=== PATIENT | male | born 1960 | race American Indian/Alaskan Native ===

== ENCOUNTER 2016-11-12 13:07 | Emergency (ER) | payer MEDICARE, MEDICAID ==
[2016-11-12 13:12] VITALS: BP 113/88
--- NOTE | 2016-11-12 13:42 | EDM.PDOC ---
ED HPI EYE COMPLAINT - General Chief Complaint: Eye Problems Stated Complaint: LEFT EYE Time Seen by Provider: 11/12/16 13:38 Source: Reports: Patient History Limitations: Reports: No limitations - History of Present Illness INITIAL COMMENTS - FREE TEXT/NARRATIVE: Per patient he woke this am with blurred vision in the left eye. no other complaints. no weakness or dizziness. states that he was seen a few weeks ago and diagnosed with an eyelid infection and told to put warm compression on it. Symptom Onset Date: 11/12/16 Timing/Duration: Reports: Constant Location: left eye Severity: mild Associated Symptoms (Eye): Reports: pain, itching, decreased/blurred - Related Data Allergies/ADRs: Allergies pentazocine lactate [From Talwin] Allergy (Verified 07/05/16 12:04) Cannot Remember phenobarbital Allergy (Verified 07/05/16 12:04) Cannot Remember phenytoin sodium [From Dilantin] Allergy (Verified 07/05/16 12:04) Cannot Remember phenytoin sodium extended [From Dilantin] Allergy (Verified 07/05/16 12:04) Cannot Remember Home Meds: Ambulatory Orders Medication Instructions Recorded Confirmed Divalproex Sodium [Depakote ER] 1,000 mg PO BID 01/22/14 03/24/16 Tafluprost/Pf [Zioptan 0.0015% Eye 1 each OP DAILY 03/17/15 03/24/16 Drops] Levothyroxine [Synthroid] 50 mcg PO DAILY 02/15/16 03/24/16 Cholecalciferol (Vitamin D3) 1,000 unit PO DAILY 02/17/16 03/24/16 [Vitamin D] LORazepam [Ativan] 0.5 mg PO DAILY PRN 02/17/16 03/24/16 Past Medical History HEENT History: Reports: Glaucoma Cardiovascular History: Reports: None Respiratory History: Reports: Bronchitis, recurrent Gastrointestinal History: Reports: GERD Genitourinary History: Reports: None Musculoskeletal History: Reports: Connective tissue disease Other Musculoskeletal History: marfans syndrome Neurological History: Reports: CVA, Seizure Psychiatric History: Reports: Addiction Endocrine/Metabolic History: Reports: Other (see below) Other Endocrine/Metabolic History: vitamin D Hematologic History: Reports: None Immunologic History: Reports: None Oncologic (Cancer) History: Reports: Lung Dermatologic History: Reports: None - Infectious Disease History Infectious Disease History: Reports: None - Past Surgical History Head Surgeries/Procedures: Reports: None GI Surgical History: Reports: Cholecystectomy Other Endocrine Surgeries/Procedures: medication hx shows levothyroxine. he states he does not take that med. Musculoskeletal Surgical History: Reports: Arthroscopic procedure Social & Family History - Family History Family Medical History: Noncontributory - Tobacco Use Smoking Status *Q: Former Smoker Month Tobacco Last Used: 07/1990 Second Hand Smoke Exposure: No - Caffeine Use Caffeine Use: Reports: Soda - Alcohol Use Days Per Week of Alcohol Use: 1 Number of Drinks Per Day: 2 Total Drinks Per Week: 2 - Recreational Drug Use Recreational Drug Use: No - Living Situation & Occupation Living situation: Reports: with family Occupation: disabled ED ROS GENERAL - Review of Systems Review Of Systems: See Below HEENT: Reports: Eye pain, Vision change ED EXAM GENERAL W FULL EYE - Physical Exam Exam: See Below Exam Limited By: No limitations General Appearance: alert, WD/WN, no apparent distress Eye Exam: bilateral eye: EOMI, normal inspection, PERRL Visual acuity (R) 20/: 40 Visual acuity (L) 20/: 40 With Correction: No Eyelids: right: normal appearance, left: erythema, stye Conjunctiva & Sclera: bilateral: normal appearance Cornea Exam: bilateral: normal appearance Extraocular Movements: bilateral: intact Pupils: normal accommodation Pupillary Size: bilateral: 4 mm Pupillary Reaction: bilateral: brisk Anterior Chamber: bilateral: normal appearance Ears: normal external exam, hearing grossly normal, other (cerumen bilaterally, minimally visualized TM with mild effusion) Respiratory/Chest: no respiratory distress, lungs clear, normal breath sounds, no accessory muscle use, chest non-tender Cardiovascular: normal peripheral pulses, regular rate, rhythm, no edema, no gallop, no JVD, no murmur, no rub Extremities: other (weak left upper extremity from previous injury) Neurological: alert, oriented, CN II-XII intact, normal cognition, normal gait, normal reflexes, no motor/sensory deficits Course - Vital Signs Last Recorded V/S: Last Vital Signs Temp 96.6 F 11/12/16 13:11 Pulse 67 11/12/16 13:11 Resp 18 11/12/16 13:11 BP 113/88 11/12/16 13:11 Pulse Ox 100 11/12/16 13:11 - Radiology Interpretation Free Text/Narrative:: No acute findings Departure - Departure Time of Disposition: 15:17 Disposition: Home, Self-Care 01 Condition: good Clinical Impression: Blurred vision, left eye Instructions: Blurred Vision Forms: ED Department Discharge Additional Instructions: Make sure to follow up with an eye doctor as soon as possible. They can look in the back of the eye to evaluate the nerves. Return for any worsening symptoms.
--- NOTE | 2016-11-12 14:23 | CT ---
CLINICAL HISTORY: 56-year-old 207 pound male complaining of blurred vision reported on previous CT s can of the head 26 February 2016 to have "no acute intracranial process (large amount of encephalomalaci a right frontal, parietal and temporal lobes). SCAN TECHNIQUE: Volume acquisition of data from an unenhanced CT scan of the head obtained with the patient lying supine on the Siemens multislice scanner [facility] . All data archived in the PACS system for storage and study (bone/brain windows). INTERPRETATION: No new intracranial abnormality when compared directly to images of February 2016. 1. Right craniotomy with underlying extensive encephalomalacia right cerebral hemisphere. 2. Symmetric clear pneumatization of the paranasal and mastoid sinuses. 3. No new ischemic or hemorrhagic involvement of the occipital lobes either cerebral hemisphere. 4. No new signs of supratentorial or posterior fossa mass lesion, ischemic infarct, or acute intrace rebral/intraventricular/subarachnoid bleed. Chronic asymmetry of the ventricular system. 5. Atrophy. No abnormal new collections of extracerebral/intracranial epidural or subdural fluid.
== END 2016-11-12 15:36 | disposition home or self-care (01) ==
LOC: DL.ED 13:07
DX: H53.8 Other visual disturbances (principal); K21.9 Gastro-esophageal reflux disease without esophagitis; Z88.8 Allergy status to other drugs, medicaments and biological substances; Z79.899 Other long term (current) drug therapy; Z90.49 Acquired absence of other specified parts of digestive tract; Z87.891 Personal history of nicotine dependence
CPT/HCPCS: 70450; 99282; 99284

== ENCOUNTER 2016-11-16 14:10 | Emergency (ER) | payer MEDICARE, MEDICAID ==
--- NOTE | 2016-11-16 14:20 | EDM.PDOC ---
ED HPI HEAD INJURY - General Chief Complaint: Head Injury Stated Complaint: FELL WEDNESDAY AM, NOSE BROKE ? Time Seen by Provider: 11/16/16 14:19 Source of Information: Reports: Patient, Family, Old records, RN, RN notes reviewed History Limitations: Reports: No limitations - History of Present Illness INITIAL COMMENTS - FREE TEXT/NARRATIVE: Complains of face injury sustained late Wednesday night/early Wednesday morning from a fall at home. Patient complains of possible broken nose or face bone. Denies LOC, nausea, vomiting or any other injury. Admits to left nose bleed which patient was able to stop on his own. Timing/Duration: Reports: Constant Location: Reports: face Quality: Reports: ache Severity: moderate Place of Occurrence: home Improves with: none Worsens with: none Associated Symptoms: Reports: no other symptoms - Related Data Allergies/ADRs: Allergies Allergy/AdvReac Type Severity Reaction Status Date / Time pentazocine lactate Allergy Cannot Verified 07/05/16 12:04 [From Talwin] Remember phenobarbital Allergy Cannot Verified 07/05/16 12:04 Remember phenytoin sodium Allergy Cannot Verified 07/05/16 12:04 [From Dilantin] Remember phenytoin sodium extended Allergy Cannot Verified 07/05/16 12:04 [From Dilantin] Remember Home Meds: Home Meds Divalproex Sodium [Depakote ER] 1,000 mg PO BID 01/22/14 [History] Tafluprost/Pf [Zioptan 0.0015% Eye Drops] 1 each OP DAILY 03/17/15 [History] Levothyroxine [Synthroid] 50 mcg PO DAILY 02/15/16 [History] Cholecalciferol (Vitamin D3) [Vitamin D] 1,000 unit PO DAILY 02/17/16 [History] LORazepam [Ativan] 0.5 mg PO DAILY PRN 02/17/16 [History] Past Medical History HEENT History: Reports: Glaucoma Cardiovascular History: Reports: None Respiratory History: Reports: Bronchitis, recurrent Gastrointestinal History: Reports: GERD Genitourinary History: Reports: None Musculoskeletal History: Reports: Connective tissue disease Other Musculoskeletal History: marfans syndrome Neurological History: Reports: CVA, Seizure Psychiatric History: Reports: Addiction Endocrine/Metabolic History: Reports: Other (see below) Other Endocrine/Metabolic History: vitamin D Hematologic History: Reports: None Immunologic History: Reports: None Oncologic (Cancer) History: Reports: Lung Dermatologic History: Reports: None - Infectious Disease History Infectious Disease History: Reports: None - Past Surgical History Head Surgeries/Procedures: Reports: None GI Surgical History: Reports: Cholecystectomy Other Endocrine Surgeries/Procedures: medication hx shows levothyroxine. he states he does not take that med. Musculoskeletal Surgical History: Reports: Arthroscopic procedure Social & Family History - Family History Family Medical History: Noncontributory - Tobacco Use Smoking Status *Q: Former Smoker Month Tobacco Last Used: 07/1990 Second Hand Smoke Exposure: No - Caffeine Use Caffeine Use: Reports: Soda - Alcohol Use Days Per Week of Alcohol Use: 1 Number of Drinks Per Day: 2 Total Drinks Per Week: 2 - Recreational Drug Use Recreational Drug Use: No - Living Situation & Occupation Living situation: Reports: with family Occupation: disabled ED ROS GENERAL - Review of Systems Review Of Systems: ROS reveals no pertinent complaints other than HPI. ED EXAM, HEAD INJURY - Physical Exam Exam: See Below Exam Limited By: No limitations General Appearance: alert, WD/WN, no apparent distress Head: other (Swelling with contusion, superficial abrasions and tenderness to left forehead and left eyebrow and nose. Bilateral periorbital contusions left greater than right. ) Neck: non-tender, full range of motion, normal alignment, normal inspection Respiratory: no respiratory distress, lungs clear, normal breath sounds, no accessory muscle use, chest non-tender Cardiovascular: normal peripheral pulses, regular rate, rhythm, no edema, no gallop, no JVD, no murmur, no rub Back Exam: full range of motion, normal inspection, NT Extremities: no evidence of injury, normal range of motion, non-tender, no pedal edema, pelvis stable Neurologic: gis administrator II-XII nml as tested, no motor/sensory deficits, alert, normal mood/affect, oriented x 3 Course - Vital Signs Last Recorded V/S: Last Vital Signs Temp 36.2 C 11/16/16 14:36 Pulse 76 11/16/16 14:36 Resp 16 11/16/16 14:36 BP 114/77 11/16/16 14:36 Pulse Ox 98 11/16/16 14:36 - Orders/Labs/Meds Orders: Active Orders 24 hr Category Date Time Status Vaccines to be Administered [RC] PER UNIT ROUTINE Care 11/16/16 16:01 Active Meds: Medications Discontinued Medications Generic Name Dose Route Start Last Admin Trade Name Jenni PRN Reason Stop Dose Admin Amoxicillin/Clavulanate Potassium 1 tab 11/16/16 16:02 11/16/16 16:25 Augmentin 875 Mg/125 Mg PO 11/16/16 16:03 1 tab ONETIME ONE Administration Bacitracin 1 dose 11/16/16 16:01 11/16/16 16:26 Bacitracin Oint 1 Gm TOP 11/16/16 16:02 1 dose ONETIME ONE Administration Diphtheria/Tetanus/Acell Pertussis 0.5 ml 11/16/16 16:01 11/16/16 16:28 Adacel IM 11/16/16 16:02 0.5 ml .ONCE ONE Administration - Radiology Interpretation Free Text/Narrative:: CT Max/facial: Comminuted anterior left frontal sinus fracture with depression with posterior wall fracture. See rad report. - Re-Assessments/Exams Free Text/Narrative Re-Assessment/Exam: Contacted Dr. Florez. He will make arrangements for outpatient follow up with the patient. Departure - Departure Time of Disposition: 16:56 Disposition: Home, Self-Care 01 Condition: fair Clinical Impression: Frontal sinus fracture Qualifiers: Encounter type: initial encounter Fracture type: closed Qualified Code(s): S02.19XA - Other fracture of base of skull, initial encounter for closed fracture Concussion Qualifiers: Encounter type: initial encounter Loss of consciousness presence/duration: without LOC Qualified Code(s): S06.0X0A - Concussion without loss of consciousness, initial encounter Instructions: Skull Fracture, Adult, Concussion, Adult, [id number] Referrals: Demarco Middleton MD [Primary Care Provider] - Forms: ED Department Discharge Additional Instructions: Rx: Augmentin 875mg Dr. Florez's office will contact you about a follow up appointment. Otherwise follow up in clinic with your doctor next week. - My Orders Last 24 Hours: My Active Orders 11/16/16 16:01 Vaccines to be Administered [RC] PER UNIT ROUTINE - Assessment/Plan Last 24 Hours: My Active Orders 11/16/16 16:01 Vaccines to be Administered [RC] PER UNIT ROUTINE
[2016-11-16 14:37] VITALS: BP 114/77
--- NOTE | 2016-11-16 16:00 | CT ---
CLINICAL HISTORY: 56-year-old male with facial trauma associated with fall (Wednesday). SCAN TECHNIQUE: Volume acquisition of data from an unenhanced CT scan of the facial bones obtained w ith the patient lying supine on the Siemens multislice CT scanner [place], [place]. All data archived in the PACS system for storage, reformatting axial/sagittal/coronal plane and study. INTERPRETATION: Abnormal. *Frontal soft tissue swelling with underlying comminuted fracture anterior wall frontal sinus, left of midline (depression of bony fragments with associated hematoma). Evidence of right craniotomy. No nasal bone, orbital or other facial bone fracture (small air-fluid level dependent portion of the left maxillary sinus).
[2016-11-16] MEDS ORDERED: Bacitracin Oint 1 GM U/D Packet TOP ONE (16:01)
[2016-11-16] MEDS ORDERED: Diphtheria,Pertussis(Acell),Tetanus Vaccine 0.5 ML SDV IM ONE (16:01)
[2016-11-16] MEDS ORDERED: Amoxicillin/Clavulanate K 875-125 MG Tab PO ONE (16:02)
== END 2016-11-16 17:05 | disposition home or self-care (01) ==
LOC: DL.ED 14:10
DX: S06.0X0A Concussion without loss of consciousness, initial encounter (principal); S02.19XA Other fracture of base of skull, initial encounter for closed fracture; S05.12XA Contusion of eyeball and orbital tissues, left eye, initial encounter; S05.11XA Contusion of eyeball and orbital tissues, right eye, initial encounter; K21.9 Gastro-esophageal reflux disease without esophagitis; Z23 Encounter for immunization; Z88.8 Allergy status to other drugs, medicaments and biological substances; Z86.73 Personal history of transient ischemic attack (TIA), and cerebral infarction without residual deficits; Z79.899 Other long term (current) drug therapy; Z90.49 Acquired absence of other specified parts of digestive tract; Z87.891 Personal history of nicotine dependence; W19.XXXA Unspecified fall, initial encounter; Y92.009 Unspecified place in unspecified non-institutional (private) residence as the place of occurrence of the external cause
CPT/HCPCS: 70486; 90715; 96372; 99284; A9270; 99283

== ENCOUNTER 2017-04-24 20:17 | Emergency (ER) | payer MEDICARE, MEDICAID ==
--- NOTE | 2017-04-24 20:24 | EDM.PDOC ---
ED HPI GENERAL MEDICAL PROBLEM - General Chief Complaint: Abdominal Pain Stated Complaint: ABD PAINS, LEFT SHOULDER Time Seen by Provider: 04/24/17 20:23 Source of Information: Reports: Patient - History of Present Illness INITIAL COMMENTS - FREE TEXT/NARRATIVE: 57 yo M with PMHx of chronic abdominal pain, constipation, OA, alcoholism & related intoxication, falls is here for RLQ abdominal pain since around 6 am this morning. The pain is sharp, 5/10, intermittent, non-radiating. He can't identify any alleviating or aggravating factors. He has been constipated since this morning (usually he is able to have a BM once or twice per week). He feels like his appetite has been low today. Since pain did not resolve today so he called 911 and EMS brought him in. Got 1L NS via EMS. Abdominal surgeries include cholecystectomy per chart review. Denies dysuria, hematuria, nausea, vomiting, fever, chills, recent abdominal pain, diarrhea, bloody stools, recent travel, h/o SD or stroke, fall/injury/ trauma, change in medications. Reports living alone and reports being ambulatory. Patient has had similar symptoms in the past. Per chart review, his CT Abd in 2016 did not show acute changes despite elevation in T-bili; AXR have showed excessive stool and etiologies such as constipation and viral have been discussed in the past. Bentyl and antiemetics have been tried in the past and have helped for the time being. Onset: Today Right Lower Abdomen Pain Score (Numeric/FACES): 7 - Related Data Allergies Allergy/AdvReac Type Severity Reaction Status Date / Time pentazocine lactate Allergy Cannot Verified 04/24/17 20:32 [From Talwin] Remember phenobarbital Allergy Cannot Verified 04/24/17 20:32 Remember phenytoin sodium Allergy Cannot Verified 04/24/17 20:32 [From Dilantin] Remember phenytoin sodium extended Allergy Cannot Verified 04/24/17 20:32 [From Dilantin] Remember Home Meds: Home Meds Divalproex Sodium [Depakote ER] 1,000 mg PO BID 01/22/14 [History] Tafluprost/Pf [Zioptan 0.0015% Eye Drops] 1 each OP DAILY 03/17/15 [History] Levothyroxine [Synthroid] 50 mcg PO DAILY 02/15/16 [History] Cholecalciferol (Vitamin D3) [Vitamin D] 1,000 unit PO DAILY 02/17/16 [History] LORazepam [Ativan] 0.5 mg PO DAILY PRN 02/17/16 [History] Past Medical History HEENT History: Reports: Glaucoma Cardiovascular History: Reports: None Respiratory History: Reports: Bronchitis, Recurrent Gastrointestinal History: Reports: GERD Genitourinary History: Reports: None Musculoskeletal History: Reports: Connective Tissue Disease Other Musculoskeletal History: marfans syndrome Neurological History: Reports: CVA, Seizure Psychiatric History: Reports: Addiction Endocrine/Metabolic History: Reports: Other (See Below) Other Endocrine/Metabolic History: vitamin D Hematologic History: Reports: None Immunologic History: Reports: None Oncologic (Cancer) History: Reports: Lung Dermatologic History: Reports: None - Infectious Disease History Infectious Disease History: Reports: None - Past Surgical History HEENT Surgical History: Reports: Other (See Below) Musculoskeletal Surgical History: Reports: Arthroscopic Procedure Social & Family History - Family History Family Medical History: Noncontributory - Tobacco Use Smoking Status *Q: Former Smoker Month Tobacco Last Used: 07/1990 Second Hand Smoke Exposure: No - Caffeine Use Caffeine Use: Reports: Soda - Alcohol Use Days Per Week of Alcohol Use: 1 Number of Drinks Per Day: 2 Total Drinks Per Week: 2 - Recreational Drug Use Recreational Drug Use: No - Living Situation & Occupation Living situation: Reports: with Family Occupation: Disabled ED ROS GENERAL - Review of Systems Review Of Systems: See Below Constitutional: Reports: No Symptoms HEENT: Reports: No Symptoms Respiratory: Reports: No Symptoms Cardiovascular: Reports: No Symptoms Endocrine: Reports: No Symptoms GI/Abdominal: Reports: Abdominal Pain, Anorexia, Constipation : Reports: No Symptoms Musculoskeletal: Reports: No Symptoms Skin: Reports: No Symptoms Neurological: Reports: No Symptoms Psychiatric: Reports: No Symptoms Hematologic/Lymphatic: Reports: No Symptoms Immunologic: Reports: No Symptoms ED EXAM, GI/ABD - Physical Exam Exam: See Below General Appearance: Alert, Mild Distress Eyes: Bilateral: EOMI Nose: Normal Inspection Throat/Mouth: No Airway Compromise, Other (poor oral hygiene.) Neck: Supple Respiratory/Chest: No Respiratory Distress, Lungs Clear, Normal Breath Sounds, No Accessory Muscle Use Cardiovascular: Normal Peripheral Pulses, Regular Rate, Rhythm, No Edema, No Murmur GI/Abdominal Exam: Normal Bowel Sounds, Soft, No Distention, Other (No rigidity or rebound or guarding. He has RLQ tenderness, positive psoas and obturator signs.) Rectal (Males) Exam: Deferred Extremities: Non-Tender, No Pedal Edema Neurological: Oriented Skin Exam: Warm, Dry, Intact Course - Vital Signs Last Recorded V/S: Last Vital Signs Temp 97.9 F 04/24/17 22:33 Pulse 89 04/24/17 22:33 Resp 17 04/24/17 22:33 BP 139/78 04/24/17 22:33 Pulse Ox 100 04/24/17 22:33 - Orders/Labs/Meds Orders: Active Orders 24 hr Category Date Time Status NPO Now [Nothing per Oral Now Diet] [DIET] Diet 04/25/17 Breakfast Active Abdomen Pelvis w Cont [CT] Urgent Exams 04/24/17 21:19 Taken CULTURE BLOOD [BC] Stat Lab 04/24/17 20:40 Results HYDROmorphone [Dilaudid] Med 04/24/17 23:25 Once 0.5 mg IVPUSH ONETIME ONE Labs: Laboratory Tests 04/24/17 04/24/17 04/24/17 Range/Units 20:40 20:40 20:40 WBC 8.0 (5.0-10.0) 10^3/uL RBC 4.79 (4.6-6.2) 10^6/uL Hgb 15.2 (14.0-18.0) g/dL Hct 44.2 (40.0-54.0) % MCV 92.3 (80-100) fL MCH 31.7 (27.0-34.0) pg MCHC 34.4 (33.0-35.0) g/dL Plt Count 104 L (150-450) 10^3/uL Neut % (Auto) 83.1 H (42.2-75.2) % Lymph % (Auto) 7.7 L (20.5-50.1) % Burnett % (Auto) 9.0 H (2-8) % Eos % (Auto) 0.1 L (1.0-3.0) % Baso % (Auto) 0.1 (0.0-1.0) % Sodium 142 (135-145) mmol/L Potassium 4.4 (3.6-5.0) mmol/L Chloride 106 (101-111) mmol/L Carbon Dioxide 25.0 (21.0-31.0) mmol/L Anion Gap 15.4 BUN 12 (7-18) mg/dL Creatinine 1.0 (0.6-1.3) mg/dL Est Cr Clr Drug Dosing 105.19 mL/min Estimated GFR (MDRD) > 60 BUN/Creatinine Ratio 12.00 Glucose 109 H (74-105) mg/dL Lactic Acid 1.3 (0.5-2.2) mmol/L Calcium 9.0 (8.4-10.2) mg/dl Magnesium 1.6 L (1.8-2.5) mg/dL Total Bilirubin 1.2 H (0.2-1.0) mg/dL AST 19 (10-42) IU/L ALT 15 (10-60) IU/L Alkaline Phosphatase 45 (42-121) IU/L Total Protein 6.7 (6.7-8.2) g/dl Albumin 4.0 (3.2-5.5) g/dl Globulin 2.7 Albumin/Globulin Ratio 1.48 Amylase 43 (28-100) U/L Lipase 17 L (22-51) U/L Urine Color (YELLOW) Urine Appearance (CLEAR) Urine pH (5.0-9.0) Ur Specific [place] (1.005-1.030) Urine Protein (NEGATIVE) Urine Glucose (UA) (NEGATIVE) Urine Ketones (NEGATIVE) Urine Occult Blood (NEGATIVE) Urine Nitrite (NEGATIVE) Urine Bilirubin (NEGATIVE) Urine Urobilinogen (0.2-1.0) mg/dL Ur Leukocyte Esterase (NEGATIVE) Urine RBC /HPF Urine WBC (0-5/HPF) /HPF Ur Epithelial Cells /HPF Urine Bacteria (0-FEW/HPF) /HPF Urine Mucus /LPF Urine Opiates Screen (NEGATIVE) Ur Oxycodone Screen (NEGATIVE) Urine Methadone Screen (NEGATIVE) Ur Barbiturates Screen (NEGATIVE) U Tricyclic Antidepress (NEGATIVE) Ur Phencyclidine Scrn (NEGATIVE) Ur Amphetamine Screen (NEGATIVE) U Methamphetamines Scrn (NEGATIVE) Urine MDMA Screen (NEGATIVE) U Benzodiazepines Scrn (NEGATIVE) Urine Cocaine Screen (NEGATIVE) U Marijuana (THC) Screen (NEGATIVE) 04/24/17 04/24/17 Range/Units 22:28 22:28 WBC (5.0-10.0) 10^3/uL RBC (4.6-6.2) 10^6/uL Hgb (14.0-18.0) g/dL Hct (40.0-54.0) % MCV (80-100) fL MCH (27.0-34.0) pg MCHC (33.0-35.0) g/dL Plt Count (150-450) 10^3/uL Neut % (Auto) (42.2-75.2) % Lymph % (Auto) (20.5-50.1) % Burnett % (Auto) (2-8) % Eos % (Auto) (1.0-3.0) % Baso % (Auto) (0.0-1.0) % Sodium (135-145) mmol/L Potassium (3.6-5.0) mmol/L Chloride (101-111) mmol/L Carbon Dioxide (21.0-31.0) mmol/L Anion Gap BUN (7-18) mg/dL Creatinine (0.6-1.3) mg/dL Est Cr Clr Drug Dosing mL/min Estimated GFR (MDRD) BUN/Creatinine Ratio Glucose (74-105) mg/dL Lactic Acid (0.5-2.2) mmol/L Calcium (8.4-10.2) mg/dl Magnesium (1.8-2.5) mg/dL Total Bilirubin (0.2-1.0) mg/dL AST (10-42) IU/L ALT (10-60) IU/L Alkaline Phosphatase (42-121) IU/L Total Protein (6.7-8.2) g/dl Albumin (3.2-5.5) g/dl Globulin Albumin/Globulin Ratio Amylase (28-100) U/L Lipase (22-51) U/L Urine Color Yellow (YELLOW) Urine Appearance Clear (CLEAR) Urine pH 5.5 (5.0-9.0) Ur Specific [place] 1.020 (1.005-1.030) Urine Protein Negative (NEGATIVE) Urine Glucose (UA) Negative (NEGATIVE) Urine Ketones 15 H (NEGATIVE) Urine Occult Blood Trace-intact H (NEGATIVE) Urine Nitrite Negative (NEGATIVE) Urine Bilirubin Negative (NEGATIVE) Urine Urobilinogen 0.2 (0.2-1.0) mg/dL Ur Leukocyte Esterase Negative (NEGATIVE) Urine RBC 0-5 /HPF Urine WBC 0-5 (0-5/HPF) /HPF Ur Epithelial Cells Few /HPF Urine Bacteria Few (0-FEW/HPF) /HPF Urine Mucus Many H /LPF Urine Opiates Screen Negative (NEGATIVE) Ur Oxycodone Screen Negative (NEGATIVE) Urine Methadone Screen Negative (NEGATIVE) Ur Barbiturates Screen Negative (NEGATIVE) U Tricyclic Antidepress Negative (NEGATIVE) Ur Phencyclidine Scrn Negative (NEGATIVE) Ur Amphetamine Screen Negative (NEGATIVE) U Methamphetamines Scrn Negative (NEGATIVE) Urine MDMA Screen Negative (NEGATIVE) U Benzodiazepines Scrn Negative (NEGATIVE) Urine Cocaine Screen Negative (NEGATIVE) U Marijuana (THC) Screen Negative (NEGATIVE) Meds: Medications Discontinued Medications Generic Name Dose Route Start Last Admin Trade Name Freq PRN Reason Stop Dose Admin Iopamidol 100 ml 04/24/17 21:19 04/24/17 22:17 Isovue-300 (61%) IVPUSH 04/24/17 21:20 100 ml ONETIME ONE Administration Ondansetron HCl 4 mg 04/24/17 22:37 04/24/17 22:43 Zofran IV 04/24/17 22:38 4 mg ONETIME ONE Administration - Re-Assessments/Exams Free Text/Narrative Re-Assessment/Exam: 04/24/17 22:58 Contacted one-call and attempted to transfer patient to [facility] in [place]. Received a call back from ER Charge Nurse (Hollie) informing us that the accepting surgeon will call us back once he addresses the current level 1 trauma in [place]. 04/24/17 23:15 Hollie called back and informed us that Dr. Fransisca Ann (surgeon) has graciously accepted the patient onto his service. Departure - Departure Time of Disposition: 23:31 Disposition: DC/Tfer to Acute Hospital 02 Clinical Impression: Acute appendicitis - Discharge Information Instructions: Appendicitis Referrals: Demarco Middleton MD [Primary Care Provider] - Forms: ED Department Discharge Care Plan Goals: Discussed evaluation, CT results with one-call nurse. Patient accepted by surgeon Dr. Ann at [facility] in [place]. - My Orders Last 24 Hours: My Active Orders 04/24/17 20:40 CULTURE BLOOD [BC] Stat 04/24/17 21:19 Abdomen Pelvis w Cont [CT] Urgent 04/24/17 23:25 HYDROmorphone [Dilaudid] 0.5 mg IVPUSH ONETIME ONE 04/25/17 Breakfast NPO Now [Nothing per Oral Now Diet] [DIET] - Assessment/Plan Last 24 Hours: My Active Orders 04/24/17 20:40 CULTURE BLOOD [BC] Stat 04/24/17 21:19 Abdomen Pelvis w Cont [CT] Urgent 04/24/17 23:25 HYDROmorphone [Dilaudid] 0.5 mg IVPUSH ONETIME ONE 04/25/17 Breakfast NPO Now [Nothing per Oral Now Diet] [DIET]
[2017-04-24 21:08] LABS: CHLORIDE,CL 106 mmol/L (101-111); SODIUM,NA 142 mmol/L (135-145)
[2017-04-24] MEDS ORDERED: Iopamidol 612 MG/ML 100 ML Bottle IVPUSH ONE (21:19)
[2017-04-24 22:33] VITALS: BP 139/78
[2017-04-24] MEDS ORDERED: Ondansetron 4 MG/2 ML SDV IV ONE (22:37)
[2017-04-24] MEDS ORDERED: HYDROmorphone 1 MG/ML Syringe IVPUSH ONE (23:25)
== END 2017-04-24 23:55 ==
LOC: DL.ED 20:17
DX: K35.80 Unspecified acute appendicitis (principal); K21.9 Gastro-esophageal reflux disease without esophagitis; Z86.73 Personal history of transient ischemic attack (TIA), and cerebral infarction without residual deficits; Z85.118 Personal history of other malignant neoplasm of bronchus and lung; Z98.890 Other specified postprocedural states; Z87.891 Personal history of nicotine dependence; Z79.899 Other long term (current) drug therapy; Z88.8 Allergy status to other drugs, medicaments and biological substances
CPT/HCPCS: 36415; 74177; 80053; 80305; 81001; 82150; 83605; 83690; 83735; 85025; 87040; 96374; 96375; 99284; J1170; J2405; Q9967

== ENCOUNTER 2017-05-03 19:06 | Emergency (ER) | payer MEDICARE, MEDICAID ==
[2017-05-03 19:17] VITALS: BP 114/79
--- NOTE | 2017-05-03 20:26 | EDM.PDOC ---
ED HPI GENERAL MEDICAL PROBLEM - General Chief Complaint: Upper Extremity Injury/Pain Stated Complaint: left shoulder pain Time Seen by Provider: 05/03/17 20:05 Source of Information: Reports: Patient History Limitations: Reports: No Limitations - History of Present Illness INITIAL COMMENTS - FREE TEXT/NARRATIVE: c/o of left shoulder and left rib pain. Worse with movment. No shortness of breath. no previous similar symptoms. Left Shoulder Pain Score (Numeric/FACES): 1 - Related Data Allergies Allergy/AdvReac Type Severity Reaction Status Date / Time pentazocine lactate Allergy Cannot Verified 05/03/17 19:18 [From Talwin] Remember phenobarbital Allergy Cannot Verified 05/03/17 19:18 Remember phenytoin sodium Allergy Cannot Verified 05/03/17 19:18 [From Dilantin] Remember phenytoin sodium extended Allergy Cannot Verified 05/03/17 19:18 [From Dilantin] Remember Home Meds: Home Meds Divalproex Sodium [Depakote ER] 1,000 mg PO BID 01/22/14 [History] Tafluprost/Pf [Zioptan 0.0015% Eye Drops] 1 each OP DAILY 03/17/15 [History] Levothyroxine [Synthroid] 50 mcg PO DAILY 02/15/16 [History] Cholecalciferol (Vitamin D3) [Vitamin D] 1,000 unit PO DAILY 02/17/16 [History] LORazepam [Ativan] 0.5 mg PO DAILY PRN 02/17/16 [History] Past Medical History HEENT History: Reports: Glaucoma Cardiovascular History: Reports: None Respiratory History: Reports: Bronchitis, Recurrent Gastrointestinal History: Reports: Cholelithiasis, GERD Genitourinary History: Reports: None Musculoskeletal History: Reports: Connective Tissue Disease Other Musculoskeletal History: marfans syndrome Neurological History: Reports: CVA, Seizure Psychiatric History: Reports: Addiction Endocrine/Metabolic History: Reports: Other (See Below) Other Endocrine/Metabolic History: vitamin D Hematologic History: Reports: None Immunologic History: Reports: None Oncologic (Cancer) History: Reports: Lung Dermatologic History: Reports: None - Infectious Disease History Infectious Disease History: Reports: None - Past Surgical History Head Surgeries/Procedures: Reports: None HEENT Surgical History: Reports: Other (See Below) GI Surgical History: Reports: Cholecystectomy Musculoskeletal Surgical History: Reports: Arthroscopic Procedure Social & Family History - Family History Family Medical History: Noncontributory - Tobacco Use Smoking Status *Q: Unknown Ever Smoked Month Tobacco Last Used: 07/1990 Second Hand Smoke Exposure: No - Caffeine Use Caffeine Use: Reports: None - Alcohol Use Days Per Week of Alcohol Use: 1 Number of Drinks Per Day: 2 Total Drinks Per Week: 2 Date of Last Drink: 05/03/17 Time of Last Drink: 19:00 - Recreational Drug Use Recreational Drug Use: No Drug Use in Last 12 Months: No - Living Situation & Occupation Living situation: Reports: with Family Occupation: Disabled Review of Systems - Review of Systems Review Of Systems: ROS reveals no pertinent complaints other than HPI. ED EXAM, GENERAL - Physical Exam Exam: See Below Exam Limited By: No Limitations General Appearance: Alert, Mild Distress (with movment), Thin Eye Exam: Bilateral Eye: EOMI, PERRL Ears: Normal External Exam, Normal TMs Nose: Normal Inspection, Normal Mucosa Throat/Mouth: Normal Inspection Head: Atraumatic, Normocephalic Neck: Normal Inspection Respiratory/Chest: No Respiratory Distress, Lungs Clear, Normal Breath Sounds. No: Chest Non-Tender (left mid lateral with palpation and movment), Crackles, Rales, Rhonchi, Wheezing Cardiovascular: Normal Peripheral Pulses, Regular Rate, Rhythm GI/Abdominal: Normal Bowel Sounds Back Exam: Normal Inspection, Full Range of Motion. No: CVA Tenderness (L), CVA Tenderness (R) Extremities: Limited Range of Motion (left shoulderlimited flexion ) Neurological: Alert, Oriented Psychiatric: Other (faint odor ETOH) Skin Exam: Warm, Dry, Intact Course - Vital Signs Last Recorded V/S: Last Vital Signs Temp 97.0 F 05/03/17 19:14 Pulse 83 05/03/17 19:14 Resp 20 05/03/17 19:14 BP 114/79 05/03/17 19:14 Pulse Ox 97 05/03/17 19:14 - Radiology Interpretation Free Text/Narrative:: xray left shoulder negative, ribs 10 and 11th left lateral with hairline fracture - Re-Assessments/Exams Free Text/Narrative Re-Assessment/Exam: Patient left prior to result of xrays being received. Departure - Departure Time of Disposition: 22:01 Disposition: Eloped 07 Condition: Good Clinical Impression: Pain Left rib fracture Qualifiers: Encounter type: initial encounter Rib fracture type: multiple ribs Fracture type: closed Qualified Code(s): S22.42XA - Multiple fractures of ribs, left side , initial encounter for closed fracture Shoulder pain Qualifiers: Chronicity: acute Laterality: left Qualified Code(s): M25.512 - Pain in left shoulder - Discharge Information Instructions: Rib Fracture, [id number] Referrals: PCP,Unobtain [Primary Care Provider] - Forms: ED Department Discharge Additional Instructions: tylenol or ibuprofen may alternate between every 4 hours as needed for discomfort deep breathing every 2 hours while awake follow up with primary care 1-2 weeks regarding shoulder if not improving
== END 2017-05-03 21:24 | disposition left against medical advice (07) ==
LOC: DL.ED 19:06
DX: S22.42XA Multiple fractures of ribs, left side, initial encounter for closed fracture (principal); M25.512 Pain in left shoulder; K21.9 Gastro-esophageal reflux disease without esophagitis; Z86.73 Personal history of transient ischemic attack (TIA), and cerebral infarction without residual deficits; Z90.49 Acquired absence of other specified parts of digestive tract; Z98.890 Other specified postprocedural states; Z85.118 Personal history of other malignant neoplasm of bronchus and lung; Z88.8 Allergy status to other drugs, medicaments and biological substances; Z79.899 Other long term (current) drug therapy; X58.XXXA Exposure to other specified factors, initial encounter
CPT/HCPCS: 71101-LT; 73030-LT; 99283

== ENCOUNTER 2017-08-25 11:39 | Emergency (ER) | payer MEDICARE, MEDICAID ==
[2017-08-25 12:16] VITALS: BP 119/78
--- NOTE | 2017-08-25 12:58 | EDM.PDOC ---
ED HPI GENERAL MEDICAL PROBLEM - General Chief Complaint: Upper Extremity Injury/Pain Stated Complaint: FELL ON LEFT ARM Time Seen by Provider: 08/25/17 12:31 Source of Information: Reports: Patient, Family History Limitations: Reports: No Limitations - History of Present Illness INITIAL COMMENTS - FREE TEXT/NARRATIVE: Pt presents to the ER with c/o pain to the left elbow and upper arm. He states he fell last night and hit his elbow on the floor. He states he does not know what time this occurred. He rates the pain 5/10. Onset: Sudden Onset Date: 08/24/17 Duration: Constant Location: Reports: Upper Extremity, Left Quality: Reports: Ache, Throbbing Severity: Moderate Improves with: Reports: None Worsens with: Reports: Movement Associated Symptoms: Reports: No Other Symptoms Left Arm Pain Score (Numeric/FACES): 5 - Related Data Allergies Allergy/AdvReac Type Severity Reaction Status Date / Time pentazocine lactate Allergy Cannot Verified 08/25/17 12:16 [From Talwin] Remember phenobarbital Allergy Cannot Verified 08/25/17 12:16 Remember phenytoin sodium Allergy Cannot Verified 08/25/17 12:16 [From Dilantin] Remember phenytoin sodium extended Allergy Cannot Verified 08/25/17 12:16 [From Dilantin] Remember Home Meds: Home Meds Divalproex Sodium [Depakote ER] 1,000 mg PO BID 01/22/14 [History] Tafluprost/Pf [Zioptan 0.0015% Eye Drops] 1 each OP DAILY 03/17/15 [History] Levothyroxine [Synthroid] 50 mcg PO DAILY 02/15/16 [History] Cholecalciferol (Vitamin D3) [Vitamin D] 1,000 unit PO DAILY 02/17/16 [History] LORazepam [Ativan] 0.5 mg PO DAILY PRN 02/17/16 [History] Past Medical History HEENT History: Reports: Glaucoma Cardiovascular History: Reports: None Respiratory History: Reports: Bronchitis, Recurrent Gastrointestinal History: Reports: Cholelithiasis, GERD Genitourinary History: Reports: None Musculoskeletal History: Reports: Connective Tissue Disease Other Musculoskeletal History: marfans syndrome Neurological History: Reports: CVA, Seizure Psychiatric History: Reports: Addiction Endocrine/Metabolic History: Reports: Other (See Below) Other Endocrine/Metabolic History: vitamin D Hematologic History: Reports: None Immunologic History: Reports: None Oncologic (Cancer) History: Reports: Lung Dermatologic History: Reports: None - Infectious Disease History Infectious Disease History: Reports: None - Past Surgical History Head Surgeries/Procedures: Reports: None GI Surgical History: Reports: Cholecystectomy Musculoskeletal Surgical History: Reports: Arthroscopic Procedure Social & Family History - Family History Family Medical History: Noncontributory - Tobacco Use Smoking Status *Q: Never Smoker Month Tobacco Last Used: 07/1990 Second Hand Smoke Exposure: No - Caffeine Use Caffeine Use: Reports: Soda - Alcohol Use Days Per Week of Alcohol Use: 1 Number of Drinks Per Day: 2 Total Drinks Per Week: 2 - Recreational Drug Use Recreational Drug Use: No Drug Use in Last 12 Months: No - Living Situation & Occupation Living situation: Reports: with Family Occupation: Disabled Review of Systems - Review of Systems Review Of Systems: ROS reveals no pertinent complaints other than HPI. ED EXAM, GENERAL - Physical Exam Exam: See Below Exam Limited By: No Limitations General Appearance: Alert, WD/WN, Mild Distress Eye Exam: Bilateral Eye: EOMI, Normal Inspection, PERRL Ears: Normal External Exam, Hearing Grossly Normal Nose: Normal Inspection Throat/Mouth: Normal Inspection, Normal Voice, No Airway Compromise Head: Atraumatic, Normocephalic Neck: Normal Inspection, Supple, Non-Tender, Full Range of Motion Respiratory/Chest: No Respiratory Distress, Lungs Clear, Normal Breath Sounds, No Accessory Muscle Use, Chest Non-Tender Cardiovascular: Normal Peripheral Pulses, Regular Rate, Rhythm, No Edema, No Gallop, No JVD, No Murmur, No Rub Peripheral Pulses: 2+: Radial (L), Radial (R) GI/Abdominal: Normal Bowel Sounds, Soft, Non-Tender, No Distention (Male) Exam: Deferred Rectal (Males) Exam: Deferred Back Exam: Normal Inspection, Full Range of Motion Extremities: Joint Swelling (left elbow) Course - Vital Signs Last Recorded V/S: Last Vital Signs Temp 98 F 08/25/17 12:08 Pulse 74 08/25/17 12:08 Resp 16 08/25/17 12:08 BP 119/78 08/25/17 12:08 Pulse Ox 97 08/25/17 12:08 - Radiology Interpretation Free Text/Narrative:: Elbow xray: Tiny elbow joint effusion, but no sign of acute fracture or dislocation. Small bone spur arising off the olecranon process proximal ulna See rad report Departure - Departure Time of Disposition: 13:20 Disposition: Home, Self-Care 01 Condition: Fair Clinical Impression: Elbow joint effusion Qualifiers: Laterality: left Qualified Code(s): M25.422 - Effusion, left elbow Contusion of elbow, left Qualifiers: Encounter type: initial encounter Qualified Code(s): S50.02XA - Contusion of left elbow, initial encounter - Discharge Information Instructions: Contusion, [id number] Forms: ED Department Discharge Additional Instructions: Tylenol or ibuprofen for pain Ice the area as tolerated Rest the arm Follow up with your primary care facility if no improvement.
--- NOTE | 2017-08-25 13:17 | CR ---
Clinical history: 57-year-old male injured in fall. Interpretation: 3 views left elbow demonstrate gracile thin osteopenic bones and orthopedic hardware distal left radius. Tiny elbow joint effusion but no sign of acute fracture or dislocation. Small bone spur arising off the olecranon process proximal ulna. No acute long bone fracture of the left radius or ulna.
== END 2017-08-25 13:30 | disposition home or self-care (01) ==
LOC: DL.ED 11:39
DX: S50.02XA Contusion of left elbow, initial encounter (principal); K21.9 Gastro-esophageal reflux disease without esophagitis; Z88.8 Allergy status to other drugs, medicaments and biological substances; Z79.899 Other long term (current) drug therapy; W19.XXXA Unspecified fall, initial encounter
CPT/HCPCS: 73080-LT; 99283; 99284

== ENCOUNTER 2018-05-20 02:18 | Emergency (ER) | payer MEDICARE, MEDICAID ==
[2018-05-20 02:32] VITALS: BP 107/71
--- NOTE | 2018-05-20 03:46 | EDM.PDOC ---
"<Tyron Forde - Last Filed: 05/20/18 06:51> ED HPI GENERAL MEDICAL PROBLEM - General Chief Complaint: Lower Extremity Injury/Pain Stated Complaint: AMBULANCE-UNKNOWN Time Seen by Provider: 05/20/18 02:20 Source of Information: Reports: Patient, EMS History Limitations: Reports: Intoxication - History of Present Illness INITIAL COMMENTS - FREE TEXT/NARRATIVE: c/o left hip pain, reports falling while getting up to bathroom, admits too much alcohol use.Prior hx left hip replacement. EMS noted equal bilateral pulses. No shortening, No reported loss of consciousness or hitting head. Location: Reports: Lower Extremity, Left Left Hip Pain Score (Numeric/FACES): 2 - Related Data Allergies Allergy/AdvReac Type Severity Reaction Status Date / Time pentazocine lactate Allergy Cannot Verified 08/25/17 12:16 [From Talwin] Remember phenobarbital Allergy Cannot Verified 08/25/17 12:16 Remember phenytoin sodium Allergy Cannot Verified 08/25/17 12:16 [From Dilantin] Remember phenytoin sodium extended Allergy Cannot Verified 08/25/17 12:16 [From Dilantin] Remember Home Meds: Home Meds Divalproex Sodium [Depakote ER] 1,000 mg PO BID 01/22/14 [History] Tafluprost/Pf [Zioptan 0.0015% Eye Drops] 1 each OP DAILY 03/17/15 [History] Levothyroxine [Synthroid] 50 mcg PO DAILY 02/15/16 [History] Cholecalciferol (Vitamin D3) [Vitamin D] 1,000 unit PO DAILY 02/17/16 [History] LORazepam [Ativan] 0.5 mg PO DAILY PRN 02/17/16 [History] Past Medical History HEENT History: Reports: Glaucoma Cardiovascular History: Reports: None Respiratory History: Reports: Bronchitis, Recurrent Gastrointestinal History: Reports: Cholelithiasis, GERD Genitourinary History: Reports: None Musculoskeletal History: Reports: Connective Tissue Disease Other Musculoskeletal History: marfans syndrome Neurological History: Reports: CVA, Seizure Psychiatric History: Reports: Addiction Endocrine/Metabolic History: Reports: Other (See Below) Other Endocrine/Metabolic History: vitamin D Hematologic History: Reports: None Immunologic History: Reports: None Oncologic (Cancer) History: Reports: Lung Dermatologic History: Reports: None - Infectious Disease History Infectious Disease History: Reports: None - Past Surgical History Head Surgeries/Procedures: Reports: None GI Surgical History: Reports: Cholecystectomy Musculoskeletal Surgical History: Reports: Arthroscopic Procedure Social & Family History - Family History Family Medical History: Noncontributory - Tobacco Use Smoking Status *Q: Never Smoker - Caffeine Use Caffeine Use: Reports: None - Alcohol Use Days Per Week of Alcohol Use: 5 Number of Drinks Per Day: 8 Total Drinks Per Week: 40 - Recreational Drug Use Recreational Drug Use: No - Living Situation & Occupation Living situation: Reports: with Family Occupation: Disabled ED EXAM, GENERAL - Physical Exam Exam: See Below Exam Limited By: No Limitations General Appearance: Alert, Mild Distress (with movement) Eye Exam: Bilateral Eye: EOMI Ears: Normal External Exam Nose: Normal Inspection Throat/Mouth: Normal Inspection Head: Atraumatic, Normocephalic Neck: Normal Inspection Respiratory/Chest: No Respiratory Distress, Lungs Clear, Normal Breath Sounds Cardiovascular: Normal Peripheral Pulses, Regular Rate, Rhythm, No Murmur. No: No Edema (trace pedal) GI/Abdominal: Normal Bowel Sounds, Soft Back Exam: Other (general movements stiff,) Extremities: Pedal Edema (biaterally), Limited Range of Motion (left hip mild tenderness with palpation. pedal pulses equal bilaterally. ). No: Normal Range of Motion Neurological: Alert, Oriented. No: Normal Cognition, Confused Psychiatric: Normal Affect Skin Exam: Warm, Dry, Other (superficial light abrasions bilateral knees. ) Course - Vital Signs Last Recorded V/S: Last Vital Signs Temp 36.5 C 05/20/18 02:20 Pulse 73 05/20/18 02:20 Resp 18 05/20/18 02:20 BP 107/71 05/20/18 02:20 Pulse Ox 99 05/20/18 02:20 - Orders/Labs/Meds Orders: Active Orders 24 hr Category Date Time Status Hip Min 1V Lt [CR] Stat Exams 05/20/18 02:22 Taken Pelvis wo Cont [CT] Urgent Exams 05/20/18 02:21 Taken Tibia Fibula Rt [CR] Urgent Exams 05/20/18 06:10 Ordered Labs: Laboratory Tests 05/20/18 05/20/18 05/20/18 Range/Units 04:00 04:00 04:08 WBC 4.4 L (5.0-10.0) 10^3/uL RBC 4.70 (4.6-6.2) 10^6/uL Hgb 14.6 (14.0-18.0) g/dL Hct 41.3 (40.0-54.0) % MCV 87.9 D (80-100) fL MCH 31.1 (27.0-34.0) pg MCHC 35.4 H (33.0-35.0) g/dL Plt Count 126 L (150-450) 10^3/uL Neut % (Auto) 56.7 (42.2-75.2) % Lymph % (Auto) 27.3 (20.5-50.1) % [place] % (Auto) 14.0 H (2-8) % Eos % (Auto) 1.8 (1.0-3.0) % Baso % (Auto) 0.2 (0.0-1.0) % Add Manual Diff Yes Neutrophils % (Manual) 39 L (42-75) % Band Neutrophils % 15 % Lymphocytes % (Manual) 30 (20-50) % Atypical Lymphs % 0 % Monocytes % (Manual) 9 H (2-8) % Eosinophils % (Manual) 6 H (1-3) % Basophils % (Manual) 1 Platelet Estimate Decreased Sodium 134 L (135-145) mmol/L Potassium 4.2 (3.6-5.0) mmol/L Chloride 100 L (101-111) mmol/L Carbon Dioxide 25.0 (21.0-31.0) mmol/L Anion Gap 13.2 BUN 9 (7-18) mg/dL Creatinine 0.8 (0.6-1.3) mg/dL Est Cr Clr Drug Dosing 136.65 mL/min Estimated GFR (MDRD) > 60 BUN/Creatinine Ratio 11.25 Glucose 86 (74-105) mg/dL Calcium 8.3 L (8.4-10.2) mg/dl Total Bilirubin 0.8 (0.2-1.0) mg/dL AST 25 (10-42) IU/L ALT 15 (10-60) IU/L Alkaline Phosphatase 43 (42-121) IU/L Total Protein 6.3 L (6.7-8.2) g/dl Albumin 3.7 (3.2-5.5) g/dl Globulin 2.6 Albumin/Globulin Ratio 1.42 Urine Opiates Screen Negative (NEGATIVE) Ur Oxycodone Screen Negative (NEGATIVE) Urine Methadone Screen Negative (NEGATIVE) Ur Barbiturates Screen Negative (NEGATIVE) U Tricyclic Antidepress Negative (NEGATIVE) Ur Phencyclidine Scrn Negative (NEGATIVE) Ur Amphetamine Screen Negative (NEGATIVE) U Methamphetamines Scrn Negative (NEGATIVE) Urine MDMA Screen Negative (NEGATIVE) U Benzodiazepines Scrn Negative (NEGATIVE) Urine Cocaine Screen Negative (NEGATIVE) U Marijuana (THC) Screen Negative (NEGATIVE) Ethyl Alcohol 290 mg/dL - Radiology Interpretation Free Text/Narrative:: Name: JASON CAMPBELL Age: 58Years M Date: 05/20/2018 SSN: -- : 1960 Study: XR HIP UNILAT W PELVIS WHEN PERFORMED; 1 VIEW Requesting Physician: TYRON FORED Images: 1 Addl Studies: Provided Clinical History: Contrast: Contrast Medium: Contrast Amount: Contrast Method: CONFIDENTIALITY STATEMENT This report is intended only for use by the referring physician, and only in accordance with law. If you received this in error, call [phone]. Page 1 of 1 EXAM: XR Left Hip with Pelvis when Performed, 1 View EXAM DATE/TIME: 05/20/2018 2:54 AM CLINICAL HISTORY: 58 years old, male; Pain; Hip pain; Left hip; Prior surgery; Surgery date: 6+ months; Patient HX: Fall TECHNIQUE: XR Left hip with pelvis when performed, 1 view COMPARISON: CT Abdomen Pelvis w Cont 04/24/2017 9:53 PM FINDINGS: Bones/joints: Status post left hip replacement No acute fracture or loosening Soft tissues: Normal. IMPRESSION: No acute fracture or loosening Thank you for allowing us to participate in the care of your patient. Dictated and Authenticated by: Oscar Burr MD 05/20/2018 3:31 AM Central Time ([place] & [place] Name: JASON CAMPBELL Age: 58Years M Date: 05/20/2018 SSN: -- : 1960 Study: CT PELVIS WO Requesting Physician: TYRON FORDE Images: 1 Addl Studies: Provided Clinical History: Contrast: Without Contrast Medium: Contrast Amount: Contrast Method: Page 1 of 2 EXAM: CT Pelvis Without Intravenous Contrast EXAM DATE/TIME: 05/20/2018 3:06 AM CLINICAL HISTORY: 58 years old, male; Pain; Hip pain; Left hip; Prior surgery; Surgery date: 6+ months; Patient HX: Fall TECHNIQUE: Axial computed tomography images of the pelvis without intravenous contrast. Examination was focused on the musculoskeletal structures. All CT scans at this facility use at least one of these dose optimization techniques: automated exposure control; mA and/or kV adjustment per patient size (includes targeted exams where dose is matched to clinical indication); or iterative reconstruction. Coronal and sagittal reformatted images were created and reviewed. COMPARISON: CT Abdomen Pelvis w Cont 04/24/2017 9:53 PM FINDINGS: Bones/joints: Status post left hip replacement No acute fracture or dislocation Soft tissues: Subcutaneous hematoma in the left hip region measuring 7.6 cm 3.7 cm IMPRESSION: 1. No acute fracture or dislocation 2. Subcutaneous hematoma involving the left hip region measuring 7.6 x 3.7 cm 3. No evidence for intraperitoneal injury or hematoma Thank you for allowing us to participate in the care of your patient. JASON CAMPBELL | Final Radiology Report CONFIDENTIALITY STATEMENT This report is intended only for use by the referring physician, and only in accordance with law. If you received this in error, call [phone]. Page 2 of 2 Dictated and Authenticated by: Oscar Burr MD 05/20/2018 3:33 AM Central Time ([place] & Departure - Departure Disposition: Home, Self-Care 01 Clinical Impression: Alcohol abuse Contusion of left hip Qualifiers: Encounter type: initial encounter Qualified Code(s): S70.02XA - Contusion of left hip, initial encounter Fall as cause of accidental injury at home as place of occurrence Qualifiers: Encounter type: initial encounter Qualified Code(s): W19.XXXA - Unspecified fall, initial encounter; Y92.009 - Unspecified place in unspecified non- institutional (private) residence as the place of occurrence of the external cause Acute alcohol intoxication Qualifiers: Complication of substance-induced condition: with unspecified complication Qualified Code(s): F10.929 - Alcohol use, unspecified with intoxication, unspecified - Discharge Information Instructions: Contusion, [id number], Alcohol Intoxication, Pibh-vt-[id number], Alcohol Use Disorder Forms: ED Department Discharge Additional Instructions: Activity as tolerated. Abstain from alcohol consumption. Seek alcohol treatment program if you are unable to quit on your own. Follow up in clinic for recheck if needed. <Ravin Sabillon - Last Filed: 05/20/18 07:41> ED HPI GENERAL MEDICAL PROBLEM - History of Present Illness INITIAL COMMENTS - FREE TEXT/NARRATIVE: I assumed care of the pt from Tyron LAYNE at 0700HR shift change with the pt resting comfortably awaiting an add on x-ray of the Rt Tib/Fib. No change to CC/HPI, Hx, ROS, exam, or diagnostic results as documented by Tyron for this encounter. Review of Systems - Review of Systems Review Of Systems: ROS reveals no pertinent complaints other than HPI. Course - Radiology Interpretation Free Text/Narrative:: XR Tib/Fib Right: no acute fractures, see Rad. report. Departure - Departure Time of Disposition: 07:37 Condition: Good - Discharge Information *PRESCRIPTION DRUG MONITORING PROGRAM REVIEWED*: No *COPY OF PRESCRIPTION DRUG MONITORING REPORT IN PATIENT SHANTEL: No"
[2018-05-20 04:27] LABS: ANION GAP 13.2; CHLORIDE,CL 100 mmol/L (101-111); SODIUM,NA 134 mmol/L (135-145)
== END 2018-05-20 10:45 | disposition home or self-care (01) ==
LOC: DL.ED 02:18
DX: S70.02XA Contusion of left hip, initial encounter (principal); S80.212A Abrasion, left knee, initial encounter; S80.211A Abrasion, right knee, initial encounter; W19.XXXA Unspecified fall, initial encounter; F10.929 Alcohol use, unspecified with intoxication, unspecified; Z88.8 Allergy status to other drugs, medicaments and biological substances; Z79.899 Other long term (current) drug therapy
CPT/HCPCS: 36415; 72192; 73501; 73590; 80053; 80305; 85025; 99284; G0480; 99283

== ENCOUNTER 2018-12-28 19:22 | Emergency (ER) | payer MEDICARE, MEDICAID ==
[2018-12-28 20:52] LABS: ANION GAP 12.3; CHLORIDE,CL 113 mmol/L (101-111); SODIUM,NA 141 mmol/L (135-145)
[2018-12-28] MEDS ORDERED: Iopamidol 612 MG/ML 100 ML Bottle IVPUSH ONE ×2 (21:00→21:24)
[2018-12-28] MEDS ORDERED: Ondansetron 4 MG/2 ML SDV IV ONE (23:16)
[2018-12-28] MEDS ORDERED: Ketorolac 30 MG/ML SDV IVPUSH ONE (23:16)
--- NOTE | 2018-12-28 23:18 | EDM.PDOC ---
"ED HPI GENERAL MEDICAL PROBLEM - General Chief Complaint: Abdominal Pain Stated Complaint: SHARP PAINS ON RIGHT SIDE OF STOMACH SINCE NOON Time Seen by Provider: 12/28/18 19:45 Source of Information: Reports: Patient, Family History Limitations: Reports: No Limitations - History of Present Illness INITIAL COMMENTS - FREE TEXT/NARRATIVE: ED with c/o RLQ abdominal pain , no nausea or vomiting, no fever. No difficulty with urination. Last BM yesterday. Pain started at noon today after eating lunch Right Lower Abdomen Pain Score (Numeric/FACES): 10 - Related Data Allergies Allergy/AdvReac Type Severity Reaction Status Date / Time pentazocine lactate Allergy Cannot Verified 08/25/17 12:16 [From Talwin] Remember phenobarbital Allergy Cannot Verified 08/25/17 12:16 Remember phenytoin sodium Allergy Cannot Verified 08/25/17 12:16 [From Dilantin] Remember phenytoin sodium extended Allergy Cannot Verified 08/25/17 12:16 [From Dilantin] Remember Home Meds: Home Meds Divalproex Sodium [Depakote ER] 1,000 mg PO BID 01/22/14 [History] Tafluprost/Pf [Zioptan 0.0015% Eye Drops] 1 each OP DAILY 03/17/15 [History] Levothyroxine [Synthroid] 50 mcg PO DAILY 02/15/16 [History] Cholecalciferol (Vitamin D3) [Vitamin D] 1,000 unit PO DAILY 02/17/16 [History] LORazepam [Ativan] 0.5 mg PO DAILY PRN 02/17/16 [History] Past Medical History HEENT History: Reports: Glaucoma Cardiovascular History: Reports: None Respiratory History: Reports: Bronchitis, Recurrent Gastrointestinal History: Reports: Cholelithiasis, GERD, PUD Genitourinary History: Reports: None Musculoskeletal History: Reports: Connective Tissue Disease, Fracture (hip) Other Musculoskeletal History: marfans syndrome Neurological History: Reports: CVA, Seizure Psychiatric History: Reports: Addiction Endocrine/Metabolic History: Reports: Other (See Below) Other Endocrine/Metabolic History: vitamin D Hematologic History: Reports: None Immunologic History: Reports: None Oncologic (Cancer) History: Reports: Lung Dermatologic History: Reports: None - Infectious Disease History Infectious Disease History: Reports: None - Past Surgical History Head Surgeries/Procedures: Reports: None GI Surgical History: Reports: Cholecystectomy Musculoskeletal Surgical History: Reports: Arthroscopic Procedure Social & Family History - Family History Family Medical History: Noncontributory - Tobacco Use Smoking Status *Q: Never Smoker Second Hand Smoke Exposure: No - Caffeine Use Caffeine Use: Reports: Soda - Alcohol Use Days Per Week of Alcohol Use: 3 Number of Drinks Per Day: 3 Total Drinks Per Week: 9 - Recreational Drug Use Recreational Drug Use: No - Living Situation & Occupation Living situation: Reports: with Family Occupation: Disabled ED ROS GENERAL - Review of Systems Review Of Systems: ROS reveals no pertinent complaints other than HPI. ED EXAM, GI/ABD - Physical Exam Exam: See Below Exam Limited By: No Limitations General Appearance: Alert, Mild Distress Eyes: Bilateral: EOMI Ears: Normal External Exam Throat/Mouth: Normal Inspection Head: Atraumatic, Normocephalic Neck: Normal Inspection Respiratory/Chest: No Respiratory Distress, Lungs Clear, Normal Breath Sounds Cardiovascular: Normal Peripheral Pulses, Regular Rate, Rhythm GI/Abdominal Exam: Normal Bowel Sounds, Soft, Tender (generalized lower with deep palpation, no pain upper). No: Distended, Guarding, Rebound, Abnormal Bowel Sounds Back Exam: Normal Inspection, Full Range of Motion Extremities: Other (preexisting deficit left hand contracture) Neurological: Alert, Oriented Course - Vital Signs Last Recorded V/S: Last Vital Signs Temp 97.1 F 12/28/18 21:50 Pulse 80 12/28/18 21:50 Resp 16 12/28/18 21:50 BP 124/63 12/28/18 21:50 Pulse Ox 99 12/28/18 21:50 - Orders/Labs/Meds Orders: Active Orders 24 hr Category Date Time Status CULTURE BLOOD [BC] Stat Lab 12/28/18 20:33 Ordered CULTURE BLOOD [BC] Stat Lab 12/28/18 20:33 Ordered Blood Culture x2 Reflex Set [OM.PC] Stat Oth 12/28/18 20:33 Ordered Labs: Laboratory Tests 12/28/18 12/28/18 12/28/18 Range/Units 19:59 19:59 19:59 WBC 7.9 (5.0-10.0) 10^3/uL RBC 4.92 (4.6-6.2) 10^6/uL Hgb 15.6 D (14.0-18.0) g/dL Hct 45.8 (40.0-54.0) % MCV 93.1 D (80-100) fL MCH 31.7 (27.0-34.0) pg MCHC 34.1 (33.0-35.0) g/dL Plt Count 91 L (150-450) 10^3/uL Neut % (Auto) 87.1 H (42.2-75.2) % Lymph % (Auto) 4.9 L (20.5-50.1) % [place] % (Auto) 7.7 (2-8) % Eos % (Auto) 0.3 L (1.0-3.0) % Baso % (Auto) 0.0 (0.0-1.0) % Sodium 141 (135-145) mmol/L Potassium 4.3 (3.6-5.0) mmol/L Chloride 113 H D (101-111) mmol/L Carbon Dioxide 20.0 L (21.0-31.0) mmol/L Anion Gap 12.3 BUN 18 (7-18) mg/dL Creatinine 1.1 (0.6-1.3) mg/dL Est Cr Clr Drug Dosing 99.38 mL/min Estimated GFR (MDRD) > 60 BUN/Creatinine Ratio 16.36 Glucose 108 H (74-105) mg/dL Lactic Acid 0.7 (0.5-2.2) mmol/L Calcium 8.6 (8.4-10.2) mg/dl Total Bilirubin 1.0 (0.2-1.0) mg/dL AST 16 (10-42) IU/L ALT 17 (10-60) IU/L Alkaline Phosphatase 43 (42-121) IU/L Total Protein 6.3 L (6.7-8.2) g/dl Albumin 3.8 (3.2-5.5) g/dl Globulin 2.5 Albumin/Globulin Ratio 1.52 Amylase 49 (28-100) U/L Lipase 21 L (22-51) U/L Urine Color (YELLOW) Urine Appearance (CLEAR) Urine pH (5.0-9.0) Ur Specific [place] (1.005-1.030) Urine Protein (NEGATIVE) Urine Glucose (UA) (NEGATIVE) Urine Ketones (NEGATIVE) Urine Occult Blood (NEGATIVE) Urine Nitrite (NEGATIVE) Urine Bilirubin (NEGATIVE) Urine Urobilinogen (0.2-1.0) mg/dL Ur Leukocyte Esterase (NEGATIVE) Urine RBC /HPF Urine WBC (0-5/HPF) /HPF Ur Epithelial Cells (NOT SEEN) /HPF Amorphous Sediment (NOT SEEN) /HPF Urine Bacteria (0-FEW/HPF) /HPF Urine Mucus (NOT SEEN) /LPF Ethyl Alcohol < 5 mg/dL 12/28/18 Range/Units 21:21 WBC (5.0-10.0) 10^3/uL RBC (4.6-6.2) 10^6/uL Hgb (14.0-18.0) g/dL Hct (40.0-54.0) % MCV (80-100) fL MCH (27.0-34.0) pg MCHC (33.0-35.0) g/dL Plt Count (150-450) 10^3/uL Neut % (Auto) (42.2-75.2) % Lymph % (Auto) (20.5-50.1) % [place] % (Auto) (2-8) % Eos % (Auto) (1.0-3.0) % Baso % (Auto) (0.0-1.0) % Sodium (135-145) mmol/L Potassium (3.6-5.0) mmol/L Chloride (101-111) mmol/L Carbon Dioxide (21.0-31.0) mmol/L Anion Gap BUN (7-18) mg/dL Creatinine (0.6-1.3) mg/dL Est Cr Clr Drug Dosing mL/min Estimated GFR (MDRD) BUN/Creatinine Ratio Glucose (74-105) mg/dL Lactic Acid (0.5-2.2) mmol/L Calcium (8.4-10.2) mg/dl Total Bilirubin (0.2-1.0) mg/dL AST (10-42) IU/L ALT (10-60) IU/L Alkaline Phosphatase (42-121) IU/L Total Protein (6.7-8.2) g/dl Albumin (3.2-5.5) g/dl Globulin Albumin/Globulin Ratio Amylase (28-100) U/L Lipase (22-51) U/L Urine Color Yellow (YELLOW) Urine Appearance Slightly cloudy (CLEAR) Urine pH 7.5 (5.0-9.0) Ur Specific [place] 1.020 (1.005-1.030) Urine Protein Trace H (NEGATIVE) Urine Glucose (UA) Negative (NEGATIVE) Urine Ketones Trace H (NEGATIVE) Urine Occult Blood Moderate H (NEGATIVE) Urine Nitrite Negative (NEGATIVE) Urine Bilirubin Negative (NEGATIVE) Urine Urobilinogen 1.0 (0.2-1.0) mg/dL Ur Leukocyte Esterase Negative (NEGATIVE) Urine RBC 20-30 H /HPF Urine WBC 0-5 (0-5/HPF) /HPF Ur Epithelial Cells Rare (NOT SEEN) /HPF Amorphous Sediment Rare (NOT SEEN) /HPF Urine Bacteria Rare (0-FEW/HPF) /HPF Urine Mucus Moderate H (NOT SEEN) /LPF Ethyl Alcohol mg/dL Meds: Medications Discontinued Medications Generic Name Dose Route Start Last Admin Trade Name Freq PRN Reason Stop Dose Admin Iopamidol 100 ml 12/28/18 21:00 12/28/18 21:12 Isovue-300 (61%) IVPUSH 12/28/18 21:01 Not Given ONETIME ONE Iopamidol 100 ml 12/28/18 21:24 12/28/18 21:25 Isovue-300 (61%) IVPUSH 12/28/18 21:25 100 ml ONETIME ONE Administration Ketorolac Tromethamine 30 mg 12/28/18 23:16 12/28/18 23:25 Toradol IVPUSH 12/28/18 23:17 30 mg ONETIME ONE Administration Ondansetron HCl 4 mg 12/28/18 23:16 12/28/18 23:25 Zofran IV 12/28/18 23:17 4 mg ONETIME ONE Administration - Radiology Interpretation Free Text/Narrative:: [facility] Final Radiology Report Call: [phone] assistance Online chat: [email or web address] Name: JASON CAMPBELL Age: 58Years M Date: 12/28/2018 SSN: -- : 1960 Study: CT ABDOMEN/PELVIS WO &/OR W ONE OR BOTH RGNS Requesting Physician: TYRON FORDE Images: 475 Addl Studies: Provided Clinical History: Contrast: Both Contrast Medium: Iso 300 Contrast Amount: 99 mL Contrast Method: R wrist 18g Page 1 of 2 EXAM: CT Abdomen and Pelvis Without and With Contrast EXAM DATE/TIME: 12/28/2018 9:10 PM CLINICAL HISTORY: 58 years old, male; Abdominal pain; Localized; Right lower quadrant (rlq); Patient HX: Cholecystectomy TECHNIQUE: Imaging protocol: Axial computed tomography images of the abdomen and pelvis without and with intravenous contrast. Coronal and sagittal reformatted images were created and reviewed. Radiation optimization: All CT scans at this facility use at least one of these dose optimization techniques: automated exposure control; mA and/or kV adjustment per patient size (includes targeted exams where dose is matched to clinical indication); or iterative reconstruction. Contrast material: ISO 300; Contrast volume: 99 ml; Contrast route: R WRIST 18G; COMPARISON: CT Pelvis wo Cont 08/26/2018 10:46 PM FINDINGS: ABDOMEN: Liver: Normal. No mass. Gallbladder and bile ducts: Surgical clips are present in the right upper quadrant, consistent with previous cholecystectomy. Pancreas: Normal. No ductal dilation. Spleen: Normal. No splenomegaly. Adrenals: Normal. No mass. SHANNAN JASON | Final Radiology Report CONFIDENTIALITY STATEMENT This report is intended only for use by the referring physician, and only in accordance with law. If you received this in error, call [phone]. Page 2 of 2 Kidneys and ureters: Normal. No hydronephrosis. Stomach and bowel: There are multiple diverticula in the distal descending colon but no sign of acute diverticulitis. In the left upper quadrant there is stranding of the fat planes adjacent to the small bowel. There may be acute enteritis in this region. There are multiple surgical clips in the mid and left upper abdomen which may be from prior small bowel resections. Correlation is recommended regarding any history of inflammatory bowel disease. Appendix: There are surgical clips in the cecum probably from prior appendectomy. PELVIS: Bladder: Unremarkable as visualized. Reproductive: There is a total left hip prosthesis in place which produces streak artifact obscuring some of the pelvis at the level of the urinary bladder and prostate. ABDOMEN and PELVIS: Intraperitoneal space: Normal. No free air. No significant fluid collection. Bones/joints: There is a T12 compression fracture with about 20% loss of vertebral body height. This is old. Soft tissues: Unremarkable. Vasculature: Normal. No abdominal aortic aneurysm. Lymph nodes: Normal. No enlarged lymph nodes. IMPRESSION: 1. Surgical clips in the cecum probably from appendectomy. 2. In the left upper quadrant there is stranding of the fat planes adjacent to a loop of small bowel suggesting an acute inflammatory change. This may be secondary to enteritis. 3. Multiple surgical clips are seen in the mid abdomen and may be from small bowel resection and anastomosis. Correlation is recommended regarding any history of Crohn's disease. 4. No acute abnormality in the right lower quadrant. THIS REPORT CONTAINS FINDINGS THAT MAY BE CRITICAL TO PATIENT CARE. The findings were verbally communicated via telephone conference with TYRON FORDE at 10: 05 PM CDT on 12/28/2018. The findings were acknowledged and understood. Thank you for allowing us to participate in the care of your patient. Dictated and Authenticated by - Re-Assessments/Exams Free Text/Narrative Re-Assessment/Exam: 12/29/18 00:[address] discussed with patient and family. No acute findings to lower abdomen on CT. Recommend follow up if symptoms worsen Departure - Departure Time of Disposition: 23:18 Disposition: Home, Self-Care 01 Condition: Good Clinical Impression: Abdominal pain - Discharge Information *PRESCRIPTION DRUG MONITORING PROGRAM REVIEWED*: No *COPY OF PRESCRIPTION DRUG MONITORING REPORT IN PATIENT SHANTEL: No Instructions: Abdominal Pain, Adult, [id number] Forms: ED Department Discharge Additional Instructions: bland diet, avoid spicy, greasy or caffeinated beverages, limit alcohol use miralax one capful daily as needed follow up if increased pain vomiting or fever - My Orders Last 24 Hours: My Active Orders 12/28/18 20:33 CULTURE BLOOD [BC] Stat CULTURE BLOOD [BC] Stat Blood Culture x2 Reflex Set [OM.PC] Stat - Assessment/Plan Last 24 Hours: My Active Orders 12/28/18 20:33 CULTURE BLOOD [BC] Stat CULTURE BLOOD [BC] Stat Blood Culture x2 Reflex Set [OM.PC] Stat"
[2018-12-29 00:36] VITALS: BP 124/69
== END 2018-12-28 23:57 | disposition home or self-care (01) ==
LOC: DL.ED 19:22
DX: R10.31 Right lower quadrant pain (principal); R10.84 Generalized abdominal pain; Z88.8 Allergy status to other drugs, medicaments and biological substances; Z79.899 Other long term (current) drug therapy
CPT/HCPCS: 36415; 74178; 80053; 81001; 82150; 83605; 83690; 85025; 87040; 96374; 96375; 99284; G0480; J1885; J2405; Q9967

== ENCOUNTER 2020-01-03 07:00 | Day surgery (SDC) | payer MEDICARE, MEDICAID ==
[~2020-01-03 07:00] MED LIST: Acetaminophen 325 MG Tab PO PRN; Cataract Ophth Solution EYERT ONE; Ondansetron 4 MG/2 ML SDV IVPUSH PRN; Proparacaine 0.5% Ophth Soln 15 ML Bottle EYERT ONE; Sodium Chloride 0.9% 10 ML Syringe FLUSH PRN; Tropicamide 1% Ophth Soln 15 ML Bottle EYERT ONE
[2020-01-03] MEDS ORDERED: Midazolam 1 MG/ML 2 ML SDV IV ONE (07:01)
[2020-01-03] MEDS ORDERED: Dexamethasone 4 MG/ML SDV IV ONE (07:01)
[2020-01-03] MEDS ORDERED: Sodium Chloride 0.9% 10 ML Syringe IV ONE (07:01)
[2020-01-03] MEDS ORDERED: Timolol Maleate 0.5% Ophth Soln 5 ML Bottle EYERT ONE (08:00)
[2020-01-03] MEDS ORDERED: Moxifloxacin 0.5% Ophth Soln 3 ML Bottle EYERT ONE (08:00)
[2020-01-03] MEDS ORDERED: Phenylephrine 10% Ophth Soln 5 ML Bot EYERT ONE (08:00)
[2020-01-03] MEDS ORDERED: Povidone-Iodine 5% Sterile Ophth Soln 30 ML Bottle EYERT ONE ×2 (08:19→08:30)
[2020-01-03] MEDS ORDERED: Lidocaine 1% 30 ML SDV ONE (08:19)
[2020-01-03] MEDS ORDERED: Diclofenac Sodium 0.1% Ophth Soln 5 ML Bottle EYERT ONE (08:20)
[2020-01-03] MEDS ORDERED: Apraclonidine 0.5% Ophth Soln 5 ML Bot EYERT ONE (08:20)
[2020-01-03] MEDS ORDERED: Dexamethasone/Neomycin/Polymyxin B Ophth Oint 3.5 GM Tube EYERT ONE (08:20)
[2020-01-03] MEDS ORDERED: Tetracaine HCl/PF 0.5% 4 ML Bottle EYERT ONE (08:20)
[2020-01-03] MEDS ORDERED: Chondroitin Sulfate/Hyaluronate Sodium Ophth Inj 0.75 ML Syringe EYERT ONE (08:21)
[2020-01-03] MEDS ORDERED: Vancomycin 500 MG SDV EYERT ONE ×2 (08:21)
[2020-01-03] MEDS ORDERED: Chondroitin Sulfate/Hyaluronate Sodium Ophth Inj 0.5 ML Syringe IOCULAR ONE (08:21)
[2020-01-03] MEDS ORDERED: Balanced Salt Solution Ophth Irrig 500 ML Bottle IOCULAR ONE (08:21)
[2020-01-03] MEDS ORDERED: Acetylcholine 20 MG/2 ML Intraocular Inj Kit EYERT ONE (08:22)
[2020-01-03 10:02] VITALS: BP 115/73; PULSE 63
--- NOTE | 2020-01-03 16:22 | OR ---
DATE: 01/03/2020 PREOPERATIVE DIAGNOSIS: Visually significant mixed cataract, right eye. POSTOPERATIVE DIAGNOSIS: Visually significant mixed cataract, right eye. PROCEDURE: Extracapsular cataract extraction with intraocular lens implant, right eye. ANESTHESIA: Topical/local MAC. COMPLICATIONS: None. INDICATION: Mr. Martinez was seen in the clinic. I explained options, offered cataract surgery, and I explained risks, including, but not limited to, infection, retinal detachment, loss of vision, need for additional surgery, amongst others. We discussed implant options. I recommended a monofocal implant. I offered surgery with or without the eye stent. He requested the eye stent procedure. OPERATIVE DESCRIPTION: After informed consent was obtained and the risks, benefits, and alternatives were explained, the patient was brought to the operative suite and topical anesthesia was administered. The patient was then prepped and draped in the sterile fashion and attention was placed on the right eye. A sterile lid speculum was placed into the right eye to allow operative exposure. A full-thickness paracentesis was made in the temporal portion of the operative eye. Preservative-free lidocaine 0.1 mL was injected into the anterior chamber followed by viscoelastic. A full-thickness corneal incision was then made into the anterior chamber. A bent needle cystotome was used to create a small nicholas in the anterior capsule. The capsulorrhexis forceps was then used to create a 360-degree curvilinear capsulorrhexis. The nucleus was then removed using a phacoemulsification handpiece and the remaining cortical material was then removed with irrigation and aspiration handpiece. Following removal of the cortical material, the capsular bag was then inspected and noted to be free of any holes or tears. Viscoelastic was then injected into the capsular bag and the intraocular lens was inserted into the capsular bag. The viscoelastic material was then removed from both the anterior and posterior chambers and from behind the IOL. The lens and capsular bag were then reinspected. The IOL was well centered and the capsular bag intact. The wound and paracentesis sites were inspected and hydrated with balanced saline solution. Both were found to be self- sealing. The intraocular pressure was assessed digitally and found to be within normal range. A good red reflex was noted at the completion of the procedure. No complications occurred during the operation. At the completion of the procedure, Maxitrol, Voltaren, and Iopidine drops were placed into the operative eye. A sterile eye shield was placed over the operative eye and the patient was transported to the postoperative recovery area having tolerated the procedure well. Postoperative instructions were given along with a postoperative appointment. The patient was advised to call with any questions or concerns. Mr. Martinez had significant difficulty with fixation. I elected not to place the eye stent. No complications occurred. [facility] /[id number]
== END 2020-01-03 09:31 | disposition home or self-care (01) ==
LOC: DL.SDS 07:00
PROVIDERS: ATTEND Ophthalmology
DX: H25.811 Combined forms of age-related cataract, right eye (principal); H26.9 Unspecified cataract; G40.909 Epilepsy, unspecified, not intractable, without status epilepticus; E03.9 Hypothyroidism, unspecified; Z79.899 Other long term (current) drug therapy
CPT/HCPCS: A9270-GY; J1100; J2001; J2250; J3370; V2632

== ENCOUNTER 2020-01-10 06:28 | Day surgery (SDC) | payer MEDICARE, MEDICAID ==
[~2020-01-10 06:28] MED LIST changes: -Acetaminophen 325 MG Tab PO PRN; -Cataract Ophth Solution EYERT ONE; -Ondansetron 4 MG/2 ML SDV IVPUSH PRN; -Proparacaine 0.5% Ophth Soln 15 ML Bottle EYERT ONE; +Proparacaine 0.5% Ophth Soln 15 ML Bottle ONE; -Tropicamide 1% Ophth Soln 15 ML Bottle EYERT ONE
[2020-01-10] MEDS ORDERED: Dexamethasone 4 MG/ML SDV IV ONE (06:29)
[2020-01-10] MEDS ORDERED: Sodium Chloride 0.9% 10 ML Syringe IV ONE (06:29)
[2020-01-10] MEDS ORDERED: Midazolam 1 MG/ML 2 ML SDV IV ONE (06:29)
[2020-01-10] MEDS ORDERED: Povidone-Iodine 5% Sterile Ophth Soln 30 ML Bottle EYELF ONE ×2 (06:30→08:02)
[2020-01-10] MEDS ORDERED: Timolol Maleate 0.5% Ophth Soln 5 ML Bottle EYELF ONE (06:30)
[2020-01-10] MEDS ORDERED: Phenylephrine 2.5% Ophth Soln 15 ML Bot EYELF ONE (06:30)
[2020-01-10] MEDS ORDERED: Cataract Ophth Solution EYELF ONE (06:30)
[2020-01-10] MEDS ORDERED: Acetaminophen 325 MG Tab PO PRN (06:30)
[2020-01-10] MEDS ORDERED: Tropicamide 1% Ophth Soln 15 ML Bottle EYELF ONE (06:30)
[2020-01-10] MEDS ORDERED: Proparacaine 0.5% Ophth Soln 15 ML Bottle EYELF ONE (06:30)
[2020-01-10] MEDS ORDERED: Ondansetron 4 MG/2 ML SDV IVPUSH PRN (06:30)
[2020-01-10] MEDS ORDERED: Moxifloxacin 0.5% Ophth Soln 3 ML Bottle EYELF ONE (06:30)
[2020-01-10] MEDS ORDERED: Phenylephrine 10% Ophth Soln 5 ML Bot EYEBOTH ONE (07:08)
[2020-01-10] MEDS ORDERED: Phenylephrine 10% Ophth Soln 5 ML Bot EYELF ONE (07:17)
[2020-01-10] MEDS ORDERED: Apraclonidine 0.5% Ophth Soln 5 ML Bot EYELF ONE (08:02)
[2020-01-10] MEDS ORDERED: Tetracaine HCl/PF 0.5% 4 ML Bottle EYELF ONE (08:02)
[2020-01-10] MEDS ORDERED: Dexamethasone/Neomycin/Polymyxin B Ophth Oint 3.5 GM Tube EYELF ONE (08:02)
[2020-01-10] MEDS ORDERED: Diclofenac Sodium 0.1% Ophth Soln 5 ML Bottle EYELF ONE (08:02)
[2020-01-10] MEDS ORDERED: Lidocaine 1% 30 ML SDV ONE (08:02)
[2020-01-10] MEDS ORDERED: Chondroitin Sulfate/Hyaluronate Sodium Ophth Inj 0.75 ML Syringe EYELF ONE (08:03)
[2020-01-10] MEDS ORDERED: Vancomycin 500 MG SDV EYELF ONE (08:03)
[2020-01-10] MEDS ORDERED: Balanced Salt Solution Ophth Irrig 500 ML Bottle IOCULAR ONE (08:03)
[2020-01-10 10:50] VITALS: BP 117/79; PULSE 71
--- NOTE | 2020-01-10 15:26 | OR ---
DATE: 01/10/2020 PREOPERATIVE DIAGNOSIS: Visually significant mixed cataract, left eye. POSTOPERATIVE DIAGNOSIS: Visually significant mixed cataract, left eye. PROCEDURE: Extracapsular cataract extraction with intraocular lens implant, left eye. ANESTHESIA: Topical/local MAC. COMPLICATIONS: None. INDICATION: Mr. Martinez was seen in the clinic. Examination revealed visually significant cataract. I explained options, I offered cataract surgery, and I explained risks including the potential for infection, retinal detachment, loss of vision, need for additional surgery amongst others. We discussed implant options. He has requested a monofocal implant. He does also have a history of glaucoma, and we discussed the iStent. OPERATIVE DESCRIPTION: After informed consent was obtained and the risks, benefits, and alternatives were explained, the patient was brought to the operative suite and topical anesthesia was administered. The patient was then prepped and draped in the sterile fashion and attention was placed on the left eye. A sterile lid speculum was placed into the left eye to allow operative exposure. A full-thickness paracentesis was made in the temporal portion of the operative eye. Preservative-free lidocaine 0.1 mL was injected into the anterior chamber followed by viscoelastic. A full-thickness corneal incision was then made into the anterior chamber. A bent needle cystotome was used to create a small nicholas in the anterior capsule. The capsulorrhexis forceps was then used to create a 360-degree curvilinear capsulorrhexis. The nucleus was then removed using a phacoemulsification handpiece and the remaining cortical material was then removed with irrigation and aspiration handpiece. Following removal of the cortical material, the capsular bag was then inspected and noted to be free of any holes or tears. Viscoelastic was then injected into the capsular bag and the intraocular lens was inserted into the capsular bag. The viscoelastic material was then removed from both the anterior and posterior chambers and from behind the IOL. The lens and capsular bag were then reinspected. The IOL was well centered and the capsular bag intact. The wound and paracentesis sites were inspected and hydrated with balanced saline solution. Both were found to be self- sealing. The intraocular pressure was assessed digitally and found to be within normal range. A good red reflex was noted at the completion of the procedure. No complications occurred during the operation. At the completion of the procedure, Maxitrol, Voltaren, and Iopidine drops were placed into the operative eye. A sterile eye shield was placed over the operative eye and the patient was transported to the postoperative recovery area having tolerated the procedure well. Postoperative instructions were given along with a postoperative appointment. The patient was advised to call with any questions or concerns. Mr. Martinez's fixation was very poor, and I elected not to place the iStent. [facility] /[id number]
== END 2020-01-10 09:17 | disposition home or self-care (01) ==
LOC: DL.SDS 06:28
PROVIDERS: ATTEND Ophthalmology
DX: H25.813 Combined forms of age-related cataract, bilateral (principal); E03.9 Hypothyroidism, unspecified; G40.909 Epilepsy, unspecified, not intractable, without status epilepticus; Z88.8 Allergy status to other drugs, medicaments and biological substances; Z79.890 Hormone replacement therapy; Z86.69 Personal history of other diseases of the nervous system and sense organs
CPT/HCPCS: 00142; 66984; A9270; J1100; J2001; J2250; J3370; V2632

== ENCOUNTER 2020-02-22 16:35 | Emergency (ER) | payer MEDICARE, MEDICAID ==
[2020-02-22 16:51] VITALS: BP 141/83; PULSE 77
--- NOTE | 2020-02-22 17:21 | EDM.PDOC ---
ED HPI GENERAL MEDICAL PROBLEM - General Chief Complaint: Lower Extremity Injury/Pain Stated Complaint: LEFT LEG IS HURTING Time Seen by Provider: 02/22/20 17:00 Source of Information: Reports: Patient, RN Notes Reviewed - History of Present Illness INITIAL COMMENTS - FREE TEXT/NARRATIVE: This 59 yo male patient reports to the ED with left leg pain. The patient reports his symptoms started on 02/17/20 and has continued since that time. The patient initially reported that he called the [facility] and was advised to come to the ED for an X-ray. After the patient was asked if he actually called the Clinic, the patient reported that he just came right to the ED. The patient initially reported that he had taken Tylenol and ibuprofen with no symptom relief. When asked when he took Tylenol last, the patient responded that he took ibuprofen last night, but has not taken any Tylenol. The patient was also asked if his current pain was similar to the pain he had in his left leg in the past. The patient reports his pain today is worse. Onset Date: 02/17/20 Duration: Constant, Getting Worse Location: Reports: Lower Extremity, Left Quality: Reports: Ache, Dull Severity: Moderate Improves with: Reports: None Worsens with: Reports: None Associated Symptoms: Reports: No Other Symptoms Treatments RESPIRATORY THERAPY DIRECTOR: Reports: NSAIDS (Last night) Left Leg Pain Score (Numeric/FACES): 5 - Related Data Allergies Allergy/AdvReac Type Severity Reaction Status Date / Time pentazocine lactate Allergy Cannot Verified 02/22/20 16:53 [From Talwin] Remember phenobarbital Allergy Cannot Verified 02/22/20 16:53 Remember phenytoin sodium Allergy Cannot Verified 02/22/20 16:53 [From Dilantin] Remember phenytoin sodium extended Allergy Cannot Verified 02/22/20 16:53 [From Dilantin] Remember Home Meds: Home Meds Divalproex Sodium [Depakote ER] 500 mg PO ASDIRECTED 01/22/14 [History] Tafluprost/Pf [Zioptan 0.0015% Eye Drops] 1 each OP DAILY 03/17/15 [History] Levothyroxine [Synthroid] 50 mcg PO DAILY 02/15/16 [History] Cholecalciferol (Vitamin D3) [Vitamin D] 1,000 unit PO DAILY 02/17/16 [History] Brimonidine [Alphagan P 0.1% Ophth Soln] 1 drop EYEBOTH ASDIRECTED 01/01/20 [History] Ketorolac [Acular 0.5% Ophth Soln] 1 drop EYERT BID 01/01/20 [History] Moxifloxacin HCl [Moxifloxacin] 1 drop EYERT ASDIRECTED 01/01/20 [History] cycloSPORINE [Restasis] 1 drop EYEBOTH ASDIRECTED 01/01/20 [History] prednisoLONE Acetate [Prednisolone Acetate] 1 drop EYERT ASDIRECTED 01/01/20 [History] Past Medical History HEENT History: Reports: Cataract, Glaucoma Cardiovascular History: Reports: Other (See Below) 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 Respiratory History: Reports: Bronchitis, Recurrent Gastrointestinal History: Reports: Cholelithiasis, GERD, PUD Genitourinary History: Reports: None Musculoskeletal History: Reports: Connective Tissue Disease, Fracture Other Musculoskeletal History: marfans syndrome Neurological History: Reports: CVA, Seizure Psychiatric History: Reports: Addiction Endocrine/Metabolic History: Reports: Hypothyroidism, Obesity/BMI 30+, Vitamin D Deficiency, Other (See Below) Other Endocrine/Metabolic History: vitamin D Hematologic History: Reports: None Immunologic History: Reports: None Oncologic (Cancer) History: Reports: Lung Dermatologic History: Reports: None - Infectious Disease History Infectious Disease History: Reports: None - Past Surgical History Head Surgeries/Procedures: Reports: None HEENT Surgical History: Reports: Cataract Surgery Other HEENT Surgeries/Procedures: RIGHT EYE WITH iSTENT Cardiovascular Surgical History: Reports: None Respiratory Surgical History: Reports: None GI Surgical History: Reports: Cholecystectomy Male Surgical History: Reports: None Endocrine Surgical History: Reports: Other (See Below) Other Endocrine Surgeries/Procedures: medication hx shows levothyroxine. he states he does not take that med. Neurological Surgical History: Reports: None Musculoskeletal Surgical History: Reports: Arthroscopic Procedure Other Musculoskeletal Surgeries/Procedures:: hip surgery, left Oncologic Surgical History: Reports: None Dermatological Surgical History: Reports: None Social & Family History - Family History Family Medical History: Noncontributory - Caffeine Use Caffeine Use: Reports: Soda Caffeine Use Comment: 3 cans daily - Living Situation & Occupation Living situation: Reports: with Family Occupation: Disabled Review of Systems - Review of Systems Review Of Systems: Comprehensive ROS is negative, except as noted in HPI. ED EXAM, GENERAL - Physical Exam Exam: See Below Exam Limited By: No Limitations General Appearance: Alert, WD/WN, Mild Distress Eye Exam: Bilateral Eye: EOMI, Normal Inspection, PERRL Ears: Normal External Exam, Normal Canal, Hearing Grossly Normal, Normal TMs Nose: Normal Inspection, Normal Mucosa, No Blood Head: Atraumatic, Normocephalic Neck: Normal Inspection, Supple, Non-Tender, Full Range of Motion Respiratory/Chest: No Respiratory Distress, Lungs Clear, Normal Breath Sounds, No Accessory Muscle Use, Chest Non-Tender Cardiovascular: Normal Peripheral Pulses, Regular Rate, Rhythm, No Edema, No Gallop, No JVD, No Murmur, No Rub GI/Abdominal: Normal Bowel Sounds, Soft, Non-Tender, No Organomegaly, No Distention, No Abnormal Bruit, No Mass (Male) Exam: Deferred Rectal (Males) Exam: Deferred Extremities: Leg Pain (left leg pain from medial knee to lateral hip) Neurological: Alert, Oriented, CN II-XII Intact, Normal Cognition, Normal Gait, Normal Reflexes, No Motor/Sensory Deficits Psychiatric: Normal Affect, Normal Mood Skin Exam: Warm, Dry, Intact, Normal Color, No Rash Lymphatic: No Adenopathy Course - Vital Signs Last Recorded V/S: Last Vital Signs Temp 36.6 C 02/22/20 16:49 Pulse 77 02/22/20 16:49 Resp 18 02/22/20 16:49 BP 141/83 H 02/22/20 16:49 Pulse Ox 99 02/22/20 16:49 - Orders/Labs/Meds Orders: Active Orders 24 hr Category Date Time Status CULTURE BLOOD [BC] Stat Lab 02/22/20 16:57 Ordered Ketorolac [Toradol] Med 02/22/20 18:20 Once 30 mg IM ONETIME ONE Labs: Laboratory Tests 02/22/20 02/22/20 02/22/20 Range/Units 17:17 17:17 17:17 WBC 4.5 L (5.0-10.0) 10^3/uL RBC 4.18 L (4.6-6.2) 10^6/uL Hgb 13.4 L D (14.0-18.0) g/dL Hct 39.2 L (40.0-54.0) % MCV 93.8 (80-100) fL MCH 32.1 (27.0-34.0) pg MCHC 34.2 (33.0-35.0) g/dL Plt Count 111 L (150-450) 10^3/uL Neut % (Auto) 71.7 (42.2-75.2) % Lymph % (Auto) 18.5 L (20.5-50.1) % Traill % (Auto) 7.8 (2-8) % Eos % (Auto) 1.6 (1.0-3.0) % Baso % (Auto) 0.4 (0.0-1.0) % D-Dimer, Quantitative < 100 (0-400) ng/mL Sodium 145 (136-145) mmol/L Potassium 4.0 (3.5-5.1) mmol/L Chloride 111 H (98-107) mmol/L Carbon Dioxide 28 (21-32) mmol/L Anion Gap 10.0 (7-13) mEq/L BUN 17 (7-18) mg/dL Creatinine 1.06 (0.70-1.30) mg/dL Est Cr Clr Drug Dosing 101.90 mL/min Estimated GFR (MDRD) > 60 BUN/Creatinine Ratio 16.0 (No establ ref range) Glucose 114 H (74-99) mg/dL Lactic Acid (0.4-2.0) mmol/L Calcium 8.4 L (8.5-10.1) mg/dL Total Bilirubin 0.8 (0.2-1.0) mg/dL AST 17 (15-37) U/L ALT 25 (16-63) U/L Alkaline Phosphatase 50 (46-116) U/L Total Protein 6.2 L (6.4-8.2) g/dL Albumin 3.3 L (3.4-5.0) g/dL Globulin 2.9 Albumin/Globulin Ratio 1.14 /05/05 Range/Units 17:17 WBC (5.0-10.0) 10^3/uL RBC (4.6-6.2) 10^6/uL Hgb (14.0-18.0) g/dL Hct (40.0-54.0) % MCV (80-100) fL MCH (27.0-34.0) pg MCHC (33.0-35.0) g/dL Plt Count (150-450) 10^3/uL Neut % (Auto) (42.2-75.2) % Lymph % (Auto) (20.5-50.1) % Traill % (Auto) (2-8) % Eos % (Auto) (1.0-3.0) % Baso % (Auto) (0.0-1.0) % D-Dimer, Quantitative (0-400) ng/mL Sodium (136-145) mmol/L Potassium (3.5-5.1) mmol/L Chloride (98-107) mmol/L Carbon Dioxide (21-32) mmol/L Anion Gap (7-13) mEq/L BUN (7-18) mg/dL Creatinine (0.70-1.30) mg/dL Est Cr Clr Drug Dosing mL/min Estimated GFR (MDRD) BUN/Creatinine Ratio (No establ ref range) Glucose (74-99) mg/dL Lactic Acid 0.8 (0.4-2.0) mmol/L Calcium (8.5-10.1) mg/dL Total Bilirubin (0.2-1.0) mg/dL AST (15-37) U/L ALT (16-63) U/L Alkaline Phosphatase (46-116) U/L Total Protein (6.4-8.2) g/dL Albumin (3.4-5.0) g/dL Globulin Albumin/Globulin Ratio Departure - Departure Time of Disposition: 18:21 Disposition: Home, Self-Care 01 Condition: Fair Clinical Impression: Muscle strain of left lower extremity Qualifiers: Encounter type: initial encounter Qualified Code(s): S86.912A - Strain of u nspecified muscle(s) and tendon(s) at lower leg level, left leg, initial encounter - Discharge Information *PRESCRIPTION DRUG MONITORING PROGRAM REVIEWED*: Not Applicable *COPY OF PRESCRIPTION DRUG MONITORING REPORT IN PATIENT SHANTEL: Not Applicable Instructions: Muscle Strain, [id number] Forms: ED Department Discharge Care Plan Goals: The patient was advised of the examination and x-ray results during the visit. The patient was given an injection of Toradol while in the ED. The patient was encouraged to rest, ice and elevate his left leg over the next 48 hours. The patient may take Tylenol and ibuprofen as directed for temporary symptom relief. If the patient has any additional symptoms or concerns, the patient should either return to the emergency department or visit his primary care facility. Sepsis Event Note (ED) - Evaluation Sepsis Screening Result: No Definite Risk - Focused Exam Vital Signs: Vital Signs Temp Pulse Resp BP Pulse Ox 02/22/20 16:49 36.6 C 77 18 141/83 H 99 - My Orders Last 24 Hours: My Active Orders 02/22/20 16:57 CULTURE BLOOD [BC] Stat 02/22/20 18:20 Ketorolac [Toradol] 30 mg IM ONETIME ONE - Assessment/Plan Last 24 Hours: My Active Orders 02/22/20 16:57 CULTURE BLOOD [BC] Stat 02/22/20 18:20 Ketorolac [Toradol] 30 mg IM ONETIME ONE
[2020-02-22 17:46] LABS: CHLORIDE,CL 111 mmol/L (98-107); SODIUM,NA 145 mmol/L (136-145)
--- NOTE | 2020-02-22 18:02 | CR ---
PROCEDURE INFORMATION: Exam: XR Left Femur Exam date and time: 02/22/2020 5:22 PM Age: 59 years old Clinical indication: Other: No injury; Additional info: Left leg pain TECHNIQUE: Imaging protocol: XR Left femur. Views: 2 views. COMPARISON: No relevant prior studies available. FINDINGS: Bones/joints: Postoperative changes of the left hip with hip replacement in place. There is no evidence of joint malalignment or dislocation. Soft tissues: There are no soft tissue masses or fluid collections. IMPRESSION: 1. Postoperative changes of the left hip with hip replacement in place. 2. No evidence of acute dislocation.
--- NOTE | 2020-02-22 18:03 | CR ---
PROCEDURE INFORMATION: Exam: XR Left Tibia and Fibula Exam date and time: 02/22/2020 5:28 PM Age: 59 years old Clinical indication: Other: No injury; Additional info: Left leg pain TECHNIQUE: Imaging protocol: XR Left tibia and fibula. Views: 2 views. COMPARISON: CR Femur Min 2V Lt 02/22/2020 5:22 PM FINDINGS: Bones/joints: There is no evidence of acute fracture. There is no evidence of joint malalignment or dislocation. Most superior aspects of the tibia and fibula were not imaged. Old avulsion fracture of the lateral malleolus. Soft tissues: There are no soft tissue masses or fluid collections. IMPRESSION: 1. No evidence of acute fracture. 2. No evidence of acute dislocation.
[2020-02-22] MEDS ORDERED: Ketorolac 30 MG/ML SDV IM ONE (18:20)
== END 2020-02-22 18:37 | disposition home or self-care (01) ==
LOC: DL.ED 16:35
DX: S86.912A Strain of unspecified muscle(s) and tendon(s) at lower leg level, left leg, initial encounter (principal); E66.9 Obesity, unspecified; E03.9 Hypothyroidism, unspecified; Z68.25 Body mass index [BMI] 25.0-25.9, adult; Z86.73 Personal history of transient ischemic attack (TIA), and cerebral infarction without residual deficits; Z88.8 Allergy status to other drugs, medicaments and biological substances; Z79.899 Other long term (current) drug therapy; X58.XXXA Exposure to other specified factors, initial encounter
CPT/HCPCS: 36415; 73552; 73590; 80053; 83605; 85025; 85379; 87040; 96372; 99283; J1885

== ENCOUNTER 2021-03-22 13:26 | Emergency (ER) | payer MEDICARE, MEDICAID ==
[2021-03-22 15:03] VITALS: BP 120/74; PULSE 84
== END 2021-03-22 16:25 | disposition left against medical advice (07) ==
LOC: DL.ED 13:26
DX: Z53.21 Procedure and treatment not carried out due to patient leaving prior to being seen by health care provider (principal)

== ENCOUNTER 2021-09-17 16:32 | Emergency (ER) | payer MEDICARE, MEDICAID ==
[2021-09-17 16:54] VITALS: BP 129/68; PULSE 70
== END 2021-09-17 17:20 | disposition home or self-care (01) ==
LOC: DL.ED 16:32
DX: M25.532 Pain in left wrist (principal); E03.9 Hypothyroidism, unspecified; E66.9 Obesity, unspecified; Z68.24 Body mass index [BMI] 24.0-24.9, adult; Z88.8 Allergy status to other drugs, medicaments and biological substances; Z79.899 Other long term (current) drug therapy; Z86.73 Personal history of transient ischemic attack (TIA), and cerebral infarction without residual deficits
CPT/HCPCS: 73100-LT; 99283-25

== ENCOUNTER 2022-09-04 17:07 | Emergency (ER) | payer MEDICARE, MEDICAID ==
[2022-09-04 18:15] VITALS: BP 124/84; PULSE 73
== END 2022-09-04 18:30 | disposition home or self-care (01) ==
LOC: DL.ED 17:07
DX: M25.572 Pain in left ankle and joints of left foot (principal); K21.9 Gastro-esophageal reflux disease without esophagitis; E03.9 Hypothyroidism, unspecified; E66.9 Obesity, unspecified; Z68.25 Body mass index [BMI] 25.0-25.9, adult; Z88.8 Allergy status to other drugs, medicaments and biological substances; Z79.899 Other long term (current) drug therapy
CPT/HCPCS: 73600-LT; 73620-LT; 99283

== ENCOUNTER 2023-12-27 07:00 | Day surgery (SDC) | payer MEDICARE, MEDICAID, OTHER ==
[~2023-12-27 07:00] MED LIST changes: +Midazolam 1 MG/ML 2 ML SDV ONE; -Proparacaine 0.5% Ophth Soln 15 ML Bottle ONE; -Sodium Chloride 0.9% 10 ML Syringe FLUSH PRN; +fentaNYL 100 MCG/2 ML SDV ONE
[2023-12-27] MEDS: Dextrose 5%-0.45% NaCl 1,000 ML IV SCH (07:17)
[2023-12-27] MEDS: fentaNYL 100 MCG/2 ML SDV IV ONE ×2 (07:55→07:58)
[2023-12-27] MEDS: Midazolam 1 MG/ML 2 ML SDV IV ONE ×4 (07:56→08:00)
[2023-12-27 10:48] VITALS: BP 122/64; PULSE 60
== END 2023-12-27 10:10 | disposition home or self-care (01) ==
LOC: DL.ENDO 07:00
PROVIDERS: ATTEND Internal Medicine Gastroenterology
DX: K57.31 Diverticulosis of large intestine without perforation or abscess with bleeding (principal); D64.9 Anemia, unspecified; D69.6 Thrombocytopenia, unspecified; D72.819 Decreased white blood cell count, unspecified
CPT/HCPCS: J2250; J3010; J7042